=== PATIENT | female | born 1970 | race Caucasian/White ===

== ENCOUNTER → 2017-01-31 | Outpatient (REF) | payer OTHER ==
[2017-01-31 20:23] LABS: FREE T4 0.95 NG/DL (0.76-1.46); LUTEINIZING HORMONE 30.6 mIU/mL
[2017-01-31 20:24] LABS: ESTRADIOL 53.8 PG/ML; FOLLICLE STIMULATING HORMONE 51.3 mIU/mL
[2017-02-04 00:06] LABS: ESTRONE SERUM 129 pg/mL (.)
== END ==
LOC: M LAB REF 16:49
PROVIDERS: ATTEND Obstetrics & Gynecology
DX: N95.9 Unspecified menopausal and perimenopausal disorder (principal)

== ENCOUNTER → 2017-08-08 | Outpatient (CLI) | payer OTHER ==
[2017-08-08 20:00] LABS: LIPASE 149 U/L (73-393)
[2017-08-08 20:00] LABS: AMYLASE 73 U/L (25-115)
[2017-08-10 10:14] LABS: H PYLORI SERUM QUANT IgG ABY 0.42 (0.00-0.79)
== END ==
LOC: M SMT 15:35
DX: R10.13 Epigastric pain (principal)
CPT/HCPCS: 82150

== ENCOUNTER → 2017-10-05 | Outpatient (REF) | payer OTHER | LOC: M SFHCWAGY 10:08 | DX: Z12.4 Encounter for screening for malignant neoplasm of cervix (principal) ==

== ENCOUNTER → 2017-10-05 | Outpatient (CLI) | payer OTHER | LOC: M WHC 09:38 | DX: Z12.31 Encounter for screening mammogram for malignant neoplasm of breast (principal); R92.8 Other abnormal and inconclusive findings on diagnostic imaging of breast; Z78.0 Asymptomatic menopausal state; Z79.890 Hormone replacement therapy | CPT/HCPCS: 77067 ==

== ENCOUNTER → 2018-10-02 | Outpatient (CLI) | payer OTHER ==
[2018-10-02 14:03] LABS: BASO % 0.6 % (0.0-1.0); EOS # 0.2 10^3/uL (0.0-0.50); EOS % 3.9 % (0.0-3.0); HEMATOCRIT 41.8 % (36.0-47.0); HEMOGLOBIN 13.5 g/dl (12.0-15.5); LYMPH # 1.8 10^3/uL (1.5-4.5); LYMPH % 39.4 % (24.0-44.0); MEAN CORPUSCULAR HEMOGLOBIN 30.4 pg (27.0-33.0); MEAN CORPUSCULAR HGB CONC 32.3 g/dl (32.0-36.5); MEAN CORPUSCULAR VOLUME 94.1 fl (80.0-96.0); MONO # 0.4 10^3/uL (0.0-0.8); MONO % 8.8 % (0.0-5.0); NEUTROPHILS # 2.2 10^3/uL (1.8-7.7); NEUTROPHILS % 47.3 % (36.0-66.0); PLATELET COUNT, AUTOMATED 332 10^3/uL (150-450); RED BLOOD COUNT 4.44 10^6/uL (4.00-5.40); WHITE BLOOD COUNT 4.6 10^3/uL (4.0-10.0)
[2018-10-02 14:16] LABS: ALBUMIN 4.5 GM/DL (3.2-5.2); ALT/SGPT 22 U/L (12-78); BILIRUBIN,TOTAL 0.6 MG/DL (0.2-1.0); BLOOD UREA NITROGEN 13 MG/DL (7-18); CALCIUM LEVEL 9.3 MG/DL (8.5-10.1); CARBON DIOXIDE LEVEL 29 MEQ/L (21-32); CHLORIDE LEVEL 106 MEQ/L (98-107); CHOLESTEROL LEVEL 173 MG/DL (<200); CHOLESTEROL RISK RATIO 2.836 (<5); CREATININE FOR GFR 0.69 MG/DL (0.55-1.30); FREE T4 0.87 NG/DL (0.76-1.46); GLOMERULAR FILTRATION RATE > 60.0 (>58); GLUCOSE, FASTING 76 MG/DL (70-100); HDL CHOLESTEROL 61 MG/DL (>40); LDL CHOLESTEROL 103 MG/DL (<100); NON-HDL-C 112 MG/DL; POTASSIUM SERUM 4.1 MEQ/L (3.5-5.1); SODIUM LEVEL 140 MEQ/L (136-145); THYROID STIMULATING HORMONE 0.848 uIU/ML (0.358-3.740); TRIGLYCERIDES LEVEL 46 MG/DL (<150)
== END ==
LOC: M SMT 09:24
PROVIDERS: ATTEND Family Medicine
DX: Z13.220 Encounter for screening for lipoid disorders (principal); Z13.0 Encounter for screening for diseases of the blood and blood-forming organs and certain disorders involving the immune mechanism

== ENCOUNTER → 2018-12-27 | Outpatient (CLI) | payer OTHER ==
--- NOTE | 2018-12-27 11:51 | REP ---
BILATERAL MAMMOGRAM WITH 3D TOMOSYNTHESIS: Family history of breast cancer in a maternal aunt. [facility] lifetime risk of breast cancer 13.5%. Comparison 10/05/2017 as well as multiple other prior studies. MLO and CC views of both breasts are performed with 3D tomosynthesis. Breast parenchyma is heterogeneously dens which limits the sensitivity of the mammogram. On the right MLO view, there is a suggestion of a nodular density superiorly and slightly medially. This measures about 1 cm in diameter. It is best seen on the tomographic images. It is not definitely seen on the corresponding CC projection. I see no other evidence of mass or clustered microcalcifications. IMPRESSION: BIRADS 0: BI-RADS/ACR category 0 mammogram, Incomplete: Need additional imaging evaluation and/or prior mammograms for comparison. Possible nodular density on the right MLO view superiorly and slightly medially. Recommend spot compression view of the right breast in the MLO projection as well as the right ML view. Other views and ultrasound may also be necessary. This mammogram was interpreted with the aid of an FDA-approved computer-aided detection system. The patient states he/she had a clinical breast exam in 12/2018. The patient letter being requested is M0.
== END ==
LOC: M WHC 08:33
PROVIDERS: ATTEND Nurse Practitioner Family
DX: Z12.31 Encounter for screening mammogram for malignant neoplasm of breast (principal); R92.8 Other abnormal and inconclusive findings on diagnostic imaging of breast; Z80.3 Family history of malignant neoplasm of breast

== ENCOUNTER → 2019-01-03 | Outpatient (CLI) | payer OTHER ==
--- NOTE | 2019-01-03 10:56 | REP ---
DIAGNOSTIC MAMMOGRAM RIGHT BREAST WITH RIGHT BREAST ULTRASOUND: Spot compression views of the right breast performed. Mildly lobulated nodule is confirmed at approximately the 12 -o'clock position of the right breast measuring slightly greater than 1 cm in diameter. No associated microcalcifications are seen. Real-time sonographic evaluation of the upper right breast performed with particular attention made to the 12 -o'clock position region. The lobulated mildly irregular hypoechoic nodule is seen at that location, appearing solid. It measures 1.2 x 0.9 x 1.5 cm. I would recommend ultrasound-guided biopsy. IMPRESSION: BIRADS 4: BI-RADS/ACR category 4 mammogram. Suspicious Abnormality - biopsy should be considered. Lobulated nodule confirmed at 12 -o'clock position right breast, appearing solid by ultrasound. Recommend ultrasound-guided biopsy. Patient letter requested in M4. Electronically Signed by Otf Crawley MD 01/06/2019 07:06 P
== END ==
LOC: M RAD 07:50
PROVIDERS: ATTEND Nurse Practitioner Family
DX: R92.2 Inconclusive mammogram (principal)

== ENCOUNTER → 2020-01-07 | Outpatient (CLI) | payer OTHER ==
--- NOTE | 2020-01-07 12:55 | REPMRS ---
Patient History The patient states she had a clinical breast exam in December 2019. Family history of ovarian cancer under age 50 in sister, breast cancer at age 50 or over in maternal aunt. Took estrogen for 1 year 6 months. Took progesterone for 1 year 6 months. Took unspecified hormones for 1 year 4 months. Digital Woman Screen Mammo: January 07, 2020 - Exam #: [id number] Bilateral CC and MLO view(s) were taken. Technologist: Radha Bustamante, Technologist Prior study comparison: December 27, 2018, bilateral digital woman screen mammo performed at [facility]. October 05, 2017, digital woman screen mammo performed at [facility]. April 05, 2016, left breast digital mammo diagnostic unilateral, performed at [facility]. FINDINGS: The breast tissue is heterogeneously dense. This may lower the sensitivity of mammography. The Volpara volumetric breast density category is: C. There is a needle biopsy marker clip at approximately 12 o'clock position in the right breast. There is a moderate amount of heterogeneously dense fibroglandular tissue which is fairly symmetric. There is no interval development of dominant mass, architectural distortion, or grouped microcalcification typical of malignancy. There has been no change in the appearance of the mammogram from the prior studies. 3-D tomosynthesis shows no additional findings. Assessment: BI-RADS/ACR category 2 mammogram. Benign Findings. Recommendation Routine screening mammogram of both breasts in 1 year (for women over age 40). This patient's Lifetime Breast Cancer RIsk is estimated at 13.2 %. This mammogram was interpreted with the aid of an FDA-approved computer-aided dectection system. Electronically Signed By: Talat Phillips MD 01/07/20 [id number]
== END ==
LOC: M WHC 09:59
PROVIDERS: ATTEND Nurse Practitioner Family
DX: Z12.31 Encounter for screening mammogram for malignant neoplasm of breast (principal); Z80.41 Family history of malignant neoplasm of ovary

== ENCOUNTER → 2020-10-14 | Outpatient (CLI) | payer OTHER ==
[2020-10-14 10:31] LABS: BASO % 0.7 % (0.0-1.0); EOS # 0.3 10^3/uL (0.0-0.5); EOS % 8.3 % (0.0-3.0); HEMATOCRIT 40.4 % (36.0-47.0); HEMOGLOBIN 13.1 g/dl (12.0-15.5); LYMPH # 1.7 10^3/uL (1.5-5.0); LYMPH % 41.5 % (24.0-44.0); MEAN CORPUSCULAR HEMOGLOBIN 29.7 pg (27.0-33.0); MEAN CORPUSCULAR HGB CONC 32.4 g/dl (32.0-36.5); MEAN CORPUSCULAR VOLUME 91.6 fl (80.0-96.0); MONO # 0.3 10^3/uL (0.0-0.8); MONO % 6.8 % (2.0-8.0); NEUTROPHILS # 1.8 10^3/uL (1.5-8.5); NEUTROPHILS % 42.7 % (36.0-66.0); PLATELET COUNT, AUTOMATED 298 10^3/uL (150-450); RED BLOOD COUNT 4.41 10^6/uL (4.00-5.40); WHITE BLOOD COUNT 4.1 10^3/uL (4.0-10.0)
[2020-10-14 10:51] LABS: ERYTHROCYTE SEDIMENTATION RATE 4 mm/hr (0-30)
[2020-10-14 11:04] LABS: ALBUMIN 3.8 GM/DL (3.2-5.2); ALT/SGPT 23 U/L (12-78); BILIRUBIN,TOTAL 0.6 MG/DL (0.2-1.0); BLOOD UREA NITROGEN 12 MG/DL (7-18); CALCIUM LEVEL 9.1 MG/DL (8.5-10.1); CARBON DIOXIDE LEVEL 31 MEQ/L (21-32); CHLORIDE LEVEL 107 MEQ/L (98-107); CHOLESTEROL LEVEL 192 MG/DL (<200); CHOLESTEROL RISK RATIO 2.666 (<5); CREATININE FOR GFR 0.63 MG/DL (0.55-1.30); FREE T4 0.78 NG/DL (0.76-1.46); GLOMERULAR FILTRATION RATE > 60.0 (>51); GLUCOSE, FASTING 86 MG/DL (70-100); HDL CHOLESTEROL 72 MG/DL (>40); LDL CHOLESTEROL 108 MG/DL (<100); NON-HDL-C 120 MG/DL; POTASSIUM SERUM 4.3 MEQ/L (3.5-5.1); RHEUMATOID FACTOR QUANT < 10.0 IU/ML (<15.0); SODIUM LEVEL 141 MEQ/L (136-145); TOTAL PROTEIN 6.6 GM/DL (6.4-8.2); TRIGLYCERIDES LEVEL 59 MG/DL (<150)
--- NOTE | 2020-10-14 11:56 | REPPI ---
INDICATION: SWELLING,BILATERAL, MASS AND LUMP. COMPARISON: None. TECHNIQUE: Eight views, bilateral hand series, 4 on each side. FINDINGS: Four views of the right hand demonstrate overall normal mineralization. Joint spaces are preserved. No evidence of erosive change. No soft tissue calcifications seen.. No fracture or subluxation is seen. No opaque foreign body noted. Four views of the left hand demonstrate overall normal mineralization. There is a small cyst in the proximal for and of the 4th metacarpal noted incidentally. Joint spaces are preserved. No erosive changes are seen. There is a small accessory ossicle at the 1st carpometacarpal articulation. IMPRESSION: No acute erosive change. Normal mineralization. Unremarkable soft tissues.. <Electronically signed by Talat Phillips > 10/14/20 [id number]
== END ==
LOC: M PLAIMG 09:06
PROVIDERS: ATTEND Family Medicine
DX: R22.33 Localized swelling, mass and lump, upper limb, bilateral (principal); Z13.220 Encounter for screening for lipoid disorders; Z13.29 Encounter for screening for other suspected endocrine disorder; Z13.0 Encounter for screening for diseases of the blood and blood-forming organs and certain disorders involving the immune mechanism

== ENCOUNTER → 2021-04-03 | Outpatient (CLI) | payer OTHER ==
[~2021-04-03] MED LIST: FLUO20CA22 PO
== END ==
LOC: M LABSMTC 09:36
PROVIDERS: ATTEND Anesthesiology
DX: Z01.818 Encounter for other preprocedural examination (principal); Z11.52 Encounter for screening for COVID-19

== ENCOUNTER 2021-04-08 09:41 | Day surgery (SDC) | payer OTHER ==
[~2021-04-08] VITALS: Ht 168.9 cm; Wt 61.7 kg
[~2021-04-08 09:41] MED LIST changes: +NS 1,000 ML IV ONE
--- OUTSIDE RECORDS SUMMARY | 2021-04-08 09:46 | CCD ---
Author Author Joaquín Wiseman MD [facility] Organization Joaquín Wiseman MD [facility] Address [address] [address] Phone Care Team Providers Care Crime Data Specialist Name Role Phone Norman Loving DO Unavailable [phone] Reason for Referral No Reason for Referral Recorded Problems Includes: Active, inactive, and resolved Problems All Visits Onset Date - Time Resolved Date - Time Provider Co ndition Status Superficial Injury - Abrasion of Cornea 01/08/2021 - 12:00AM Norman Loving DO Active Dry Eye Syndrome 01/08/2021 - 12:00AM Norman Sharona garcia DO Active Plan of Treatment No Plan of Treatment Recorded Assessments Includes: Assessments for all patient encounters Findings Encounter Date Corneal abrasion TRIAGE NEW PATIENT with Norman garcia DO 01/08/2021 Dry eye syndrome TRIAGE NEW PATIENT with Norman garcia 01/08/2021 Instructions Instructions not supported for this document typeNo Instructions Recorded Medical Equipment - Implanted Devices Includes: Current and historical DevicesNo Medical Equipment Recorded Medications Includes: Current and historical Medications Current Medications (continue as prescribed) FLUoxetine HCl 20 MG Oral Capsule 01/08/2021 Provid er: Diagnosis: Ofloxacin 0.3% Ophthalmic Solution 01/08/2021 Provi faye: Norman Loving DO Diagnosis: Inj conjunctiva and corneal abrasion w/o fb, left eye, init one drop four times a day in the left eye Medications Administered Includes: Administered Medications in patient's chartNo Administered Medications Recorded Vital Signs Includes: Vital Signs from 01/09/2020 through 01/08/2021No Vital Signs Recorded For Specified Dates Results Includes: Results from 01/09/2020 through 01/08/2021No Results Recorded For Specified Dates History of Present Illness History of Present Illness not supported for this document typeNo History of Present Illness Recorded Social History Description Last Updated Alcohol use 2 drinks every 2 weeks 01/08/2021 No tobacco use 01/08/2021 Not using drugs 01/08/2021 Smoking status : Never smoker 01/08/2021 Tobacco non-user 01/08/2021 Procedures and Surgical History Surgical History Last Updated Surgical / procedural history , Ovary Remova l 01/08/2021 Medical History Includes: Medical History in patient's chart Description Last Updated Reported medical history Anxiety 01/08/2021 Family History Includes: Family History in patient's chart Description Last Updated Family history of hypertension 01/08/2021 Family history of stroke/cerebrovascular accident 12/18 Paternal history of family history of cancer Sororal history of family history of cancer 01/08/2021 Review of Systems Review of Systems not supported for this document typeNo Review of Systems Recorded Mental Status Mental Status not supported for this document type Description Oriented to time, place, and person Anxiety Functional Status Functional Status not supported for this document typeNo Functional Status Recorded Physical Exam Physical Exam not supported for this document typeNo Physical Exam Recorded Immunizations Includes: Immunizations in patient's chartNo Immunizations Recorded Allergies Includes: Active, inactive, and resolved AllergiesNo Known Allergies Encounters Includes: Encounters from 01/09/2020 through 01/08/2021 Encounter Provider Location Date Check-In Time Check-Out Time D iagnosis TRIAGE NEW PATIENT Norman Fabienne Garcia MD [facility] 1:22PM 2:52PM Dry Eye Syndrome, Superficia l Injury - Abrasion of Cornea Insurance Includes: Active Insurance Policies Plan Name Member ID Group # Subscriber Relationship Effective Da odell 1 - [employer] /[employer] NEEDED [id number] Carlos Webster Self Advance Directives Includes: Current Advance DirectivesNo Advance Directives Recorded Health Concerns Includes: Active Health ConcernsNo Active Health Concerns Recorded Goals Includes: Active GoalsNo Active Goals Recorded Interventions Includes: Interventions for active GoalsNo Interventions Recorded Evaluations & Outcomes Includes: Evaluations & Outcomes for active GoalsNo Outcomes Recorded
--- OUTSIDE RECORDS SUMMARY | 2021-04-08 09:46 | CCD ---
Author Author [facility] Organization [facility] Address Unknown Phone Unavailable Care Team Providers Care Nascar Racer Name Role Phone Velez, L Edith RPA Unavailable Unavailable Velez, L Edith RPA Unavailable Unavailable Velez, L Edith RPA Unavailable Unavailable Velez, L Edith RPA Unavailable Unavailable Velez, L Edith RPA Unavailable Unavailable Velez, L Edith RPA Unavailable Unavailable Velez, L Edith RPA Unavailable Unavailable Velez, L Edith RPA Unavailable Unavailable Velez, L Edith RPA Unavailable Unavailable Velez, L Edith RPA Unavailable Unavailable Velez, L Edith RPA Unavailable Unavailable Velez, L Edith RPA Unavailable Unavailable Velez, L Edith RPA Unavailable Unavailable Velez, L Edith RPA Unavailable Unavailable Velez, L Edith RPA Unavailable Unavailable Velez, L Edith RPA Unavailable Unavailable Velez, L Edith RPA Unavailable Unavailable Velez, L Edith RPA Unavailable Unavailable Velez, L Edith RPA Unavailable Unavailable Velez, L Edith RPA Unavailable Unavailable Velez, L Edith RPA Unavailable Unavailable Velez, L Edith RPA Unavailable Unavailable Velez, L Edith RPA Unavailable Unavailable Velez, L Edith RPA Unavailable Unavailable Velez, L Edith RPA Unavailable Unavailable Velez, L Edith RPA Unavailable Unavailable Velez, L Edith RPA Unavailable Unavailable Velez, L Edith RPA Unavailable Unavailable Velez, L Edith RPA Unavailable Unavailable Velez, L Edith RPA Unavailable Unavailable Velez, L Edith RPA Unavailable Unavailable Velez, L Edith RPA Unavailable Unavailable CUCA, A SOL DO Unavailable Unavailable CUCA, A SOL DO Unavailable Unavailable CUCA, A SOL DO Unavailable Unavailable CUCA, A SOL DO Unavailable Unavailable CUCA, A SOL DO Unavailable Unavailable CUCA, A SOL DO Unavailable Unavailable CUCA, A SOL DO Unavailable Unavailable CUCA, A SOL DO Unavailable Unavailable CUCA, A SOL DO Unavailable Unavailable CUCA, A SOL DO Unavailable Unavailable CUCA, A SOL DO Unavailable Unavailable CUCA, A SOL DO Unavailable Unavailable CUCA, A SOL DO Unavailable Unavailable CUCA, A SOL DO Unavailable Unavailable CUCA, A SOL DO Unavailable Unavailable CUCA, A SOL DO Unavailable Unavailable CUCA, A SOL DO Unavailable Unavailable CUCA, A SOL DO Unavailable Unavailable CUCA, A SOL DO Unavailable Unavailable CUCA, A SOL DO Unavailable Unavailable CUCA, A SOL DO Unavailable Unavailable CUCA, A SOL DO Unavailable Unavailable Re-disclosure Warning The records that you are about to access may contain information from federally-assisted alcohol or drug abuse programs. If such information is present, then the following federally mandated warning applies: This information has been disclosed to you from records protected by federal confidentiality rules (42 CFR part 2). The federal rules prohibit you from making any further disclosure of this information unless further disclosure is expressly permitted by the written consent of the person to whom it pertains or as otherwise permitted by 42 CFR part 2. A general authorization for the release of medical or other information is NOT sufficient for this purpose. The Federal rules restrict any use of the information to criminally investigate or prosecute any alcohol or drug abuse patient.The records that you are about to access may contain highly sensitive health information, the redisclosure of which is protected by Article 27-F of the [facility] Public Health law. If you continue you may have access to information: Regarding HIV / AIDS; Provided by facilities licensed or operated by the [facility] Office of Mental Health; or Provided by the [facility] Office for People With Developmental Disabilities. If such information is present, then the following [facility] mandated warning applies: This information has been disclosed to you from confidential records which are protected by state law. State law prohibits you from making any further disclosure of this information without the specific written consent of the person to whom it pertains, or as otherwise permitted by law. Any unauthorized further disclosure in violation of state law may result in a fine or [place] health [facility] sentence or both. A general authorization for the release of medical or other information is NOT sufficient authorization for further disc losure. Allergies and Adverse Reactions Type Description Substance Reaction Status Data Source(s ) Allergy to substance No Known Allergies No known allergies (situation ) AIDA (Joaquín Marsh MD [facility]) Allergy to substance No Known Allergies No known allergies (situation ) AIDA (Joaquín Marsh MD [facility]) Family History Family Member Name Family Member Gender Family Member Status Date o f Status Description Data Source(s) Unknown Male Problem MEDENT ([facility]) Encounters Encounter Providers Location Date Indications Data Source(s ) Outpatient Attender: Edith Carpenter/Kong/Enedelia mcarthur 01/20/2021 01:15:00 PM EDT [facility] ([facility], ) Outpatient<td ID="encounterTypeDescripti onID0">1 Week Follow-Up</td><td>Sol Loving DO</td><td>Joaquín Wiseman MD [facility]</td><td>01/18/2021</td><td>9:23AM</td><td>10:01AM</td><td><content ID="encounterDiagnosisID0-0">Dry Eye Syndrome</content>, <content ID="encounterDiagnosisID0-1">Blepharitis Squamous</content></td> Attender: SOL Garcia MD [facility] 01/18/2021 09:23:00 AM EDT - 01/18/2021 10:01:00 AM EDT Blepharitis SquamousDry Eye Syndrome AIDA (Joaquín Marsh MD [facility]) Blepharitis Squamous Dry Eye Syndrome <td ID="encounterTypeDescriptionID1">TRI AGE NEW PATIENT</td><td>Sol Loving DO</td><td>Joaquín Wiseman MD [facility]</td><td>01/08/2021</td><td>1:22PM</td><td>2:52PM</td><td><content ID="encounterDiagnosisID1-0">Dry Eye Syndrome</content>, <content ID="encounterDiagnosisID1-1">Superficial Injury - Abrasion of Cornea</content></td>Outpatient Attender: SOL Garcia MD [facility] 01/08/2021 01:22:00 PM EDT - 01/08/2021 02:52:00 PM ED T Superficial Injury - Abrasion of CorneaDry Eye SyndromeSuperficial Injury - Abrasion of CorneaDry Eye Syndrome [place] (Joaquín Marsh MD [facility]) Superficial Injury - Abrasion of Cornea Dry Eye Syndrome Superficial Injury - Abrasion of Cornea Dry Eye Syndrome Outpatient [address] [facility] [address] 08/19/2020 12:00:00 AM EST eCW1 ([facility]) Unknown [address] [facility] [address] 06/29/2020 12:00:00 AM EST eCW1 ([facility]) Unknown [address] [facility] [address] 03/25/2020 12:00:00 AM EDT eCW1 ([facility]) Immunizations Vaccine Date Status Description Data Source(s) COVID-19 VACCINE Moderna 07/16/2020 12:00:00 AM EST completed [facility]SIIS Vaccine Series Complete: NOThis Data was Submitted to [facility] Via [employer]. Medications Medication Brand Name Start Date Product Form Dose Route Admi nistrative Instructions Pharmacy Instructions Status Indications Reaction Description Data Source(s) SUPREP BOWEL PREP KIT 17.5-3.13-1.6 gram SODIUM, POTASSIUM,M AG SULFATES 03/30/2021 12:00:00 AM EDT recon soln 354 TAKE PER DOCTOR'S BOWEL PREP INSTRUCTIONS TAKE PER DOCTOR'S BOWEL PREP INSTRUCTIONS SOLD: 04/01/2021 [facility] 20 mg 03/24/2021 12:00:00 AM EDT capsule 90 TAKE ONE CAPSULE BY MOUTH EVERY DAY TAKE ONE CAPSULE BY MOUTH EVERY DAY SOLD: 04/01/2021 [facility] Ofloxacin 3 MG/ML Ophthalmic Solution Ofloxacin 0.3% O phthalmic Solution Ofloxacin 0.3% Ophthalmic Solution 01/08/2021 12:00:00 AM EDT aborted ofloxacin 3 MG/ML Ophthalmic Solution JOSUE THOMAS (Joaquín Marsh MD [facility]) Fluoxetine 20 MG Oral Capsule FLUoxetine HCl 20 MG Ora l Capsule FLUoxetine HCl 20 MG Oral Capsule 01/08/2021 12:00:00 AM EDT 1 active fluoxetine 20 MG Oral Capsule AIDA (Joaquín Marsh MD [facility]) 0.3 % 01/08/2021 12:00:00 AM EDT drops 5 INSTILL 1 DROP FOUR TIMES A DAY IN THE LEFT EYE INSTILL 1 DROP FOUR TIMES A DAY IN THE LEFT EYE SOLD: 01/08/2021 [facility] 500 mg 09/16/2020 12:00:00 AM EDT tablet 90 TAKE ONE TABLET BY MOUTH EVERY DAY TAKE ONE TABLET BY MOUTH EVERY DAY SOLD: 12/24/2020 [facility] 500 mg 09/16/2020 12:00:00 AM EDT tablet 3 TAKE ONE TABLET BY MOUTH EVERY DAY TAKE ONE TABLET BY MOUTH EVERY DAY SOLD: 04/01/2021 [facility] 500 mg 09/16/2020 12:00:00 AM EDT tablet 90 TAKE ONE TABLET BY MOUTH EVERY DAY TAKE ONE TABLET BY MOUTH EVERY DAY SOLD: 09/18/2020 [facility] 20 mg 06/29/2020 12:00:00 AM EST capsule 90 TAKE ONE CAPSULE BY MOUTH EVERY DAY IN THE MORNING TAKE ONE CAPSULE BY MOUTH EVERY DAY IN THE MORNING WILLIE [facility] 20 mg 06/29/2020 12:00:00 AM EST capsule 90 TAKE ONE CAPSULE BY MOUTH EVERY DAY IN THE MORNING TAKE ONE CAPSULE BY MOUTH EVERY DAY IN THE MORNING WILLIE [facility] 20 mg 06/29/2020 12:00:00 AM EST capsule 90 TAKE ONE CAPSULE BY MOUTH EVERY DAY IN THE MORNING TAKE ONE CAPSULE BY MOUTH EVERY DAY IN THE MORNING WILLIE [facility] 20 mg 03/26/2020 12:00:00 AM EDT capsule 90 TAKE ONE CAPSULE BY MOUTH EVERY MORNING TAKE ONE CAPSULE BY MOUTH EVERY MORNING SOLD: 03/27/2020 [facility] 0.05 % 03/14/2020 12:00:00 AM EDT dropperette 60 INSTILL 1 DROP IN EACH EYE TWO TIMES A DAY INSTILL 1 DROP IN EACH EYE TWO TIMES A DAY SOLD: 03/16/2020 [facility] 500 mg 03/02/2020 12:00:00 AM EDT tablet 30 TAKE ONE TABLET BY MOUTH EVERY DAY TAKE ONE TABLET BY MOUTH EVERY DAY SOLD: 03/04/2020 [facility] Insurance Providers Payer name Policy type / Coverage type Policy ID Covered constitution party ID Covered constitution party's relationship to sage Policy Sage Plan Information [facility] [id number] SELF PAY ONLY [id number] [facility] [id number] SP [id number] [employer] [place] Other 0 [id number] Self 0 [employer] [place] Other 0 [id number] Self [id number] [facility] [id number] ANSI-Commercial [id number] [facility] [id number] SP [id number] ANSI-Commercial [id number] ANSI-Commercial [id number] [facility] [id number] SP [id number] [facility] Part [facility] [id number] Self [id number] [facility] Commercial [id number] Self [id number] ANSI-Commercial [id number] [employer] [id number] SP [id number] [employer] [id number] SP [id number] [employer] [id number] S elf [id number] [employer] [id number] S elf [id number] [employer] [id number] S elf [id number] Problems, Conditions, and Diagnoses Code Display Name Description Problem Type Effective Dates Data Source(s) H01.02A Blepharitis Squamous Blepharitis Squamous Problem 01/18/2021 12:00:00 AM EDT AIDA (Joaquín Marsh MD [facility]) 375.15 Dry Eye Syndrome Dry Eye Syndrome Problem 01/08/2021 12 :00:00 AM EDT AIDA (Joaquín Marsh MD [facility]) 918.1 Superficial Injury - Abrasion of Cornea Superficial Injury - Abrasion of Cornea Problem 01/08/2021 12:00:00 AM EDT - 01/18/2021 12:00:00 AM EDT AIDA (Joaquín Marsh MD [facility]) 375.15 Dry Eye Syndrome Dry Eye Syndrome Problem 01/08/2021 12 :00:00 AM EDT AIDA (Joaquín Marsh MD [facility]) 918.1 Superficial Injury - Abrasion of Cornea Superficial Injury - Abrasion of Cornea Problem 01/08/2021 12:00:00 AM EDT AIDA (Liborio Marsh MD [facility]) Surgeries/Procedures Procedure Description Date Indications Data Source(s) OFFICE OUTPATIENT NEW 45 MINUTES 01/20/2021 12:00:00 A [facility] ) Surgical / procedural history , Ovary Remova l Surgical / procedural history , Ovary Removal 01/08/2021 12:00:00 AM EDT AIDA (Joaquín Marsh MD [facility]) Results No Information Social History Code Duration Value Status Description Data Source(s ) Smoking 01/18/2021 10:04:48 AM EDT Never smoked tobacco (findi ng) completed Never smoked tobacco (finding) AIDA (Joaquín Marsh MD [facility]) Smoking 01/08/2021 02:52:42 PM EDT Never smoked tobacco (findi ng) completed Never smoked tobacco (finding) AIDA (Joaquín Marsh MD [facility]) Smoking 08/19/2020 12:00:00 AM EST Former Smoker completed Former Smoker eCW1 ([facility]) Vital Signs ID Date Data Source UNK Name Value Range Interpretation Code Description Data Source(s) Body height 66.5 [in_i] 66.5 [in_i] [facility] ([facility]) 5'6.50" Body mass index (BMI) [Ratio] 22.6 kg/m2 22.6 k g/m2 [facility] ([facility]) Systolic blood pressure 130 mm[Hg] 130 mm[Hg] M [facility] ([facility]) Body temperature 99.7 [degF] 99.7 [degF] [facility] ([facility]) Body weight 142.25 [lb_av] 142.25 [lb_av] [facility] ([facility]) [place] body weight 130 [lb_av] 130 [lb_av] [facility] ([facility]) Body surface area Derived from formula 1.74 m2 1.74 m2 [facility] ([facility]) Diastolic blood pressure 72 mm[Hg] 72 mm[Hg] [facility] ([facility]) Body weight 64.525 kg 64.525 kg [facility] ([facility]) Body weight 142 [lb_av] 142 [lb_av] eCW1 ([facility]) Diastolic blood pressure 58 mm[Hg] 58 mm[Hg] eCW1 ([facility]) Body weight 64.41 kg 64.41 kg W1 ([facility]) Body height 67 [in_i] 67 [in_i] eCW1 ([facility]) Body mass index (BMI) [Ratio] 22.24 kg/m2 22.24 kg/m2 [facility] ([facility]) Systolic blood pressure 90 mm[Hg] 90 mm[Hg] e CW1 ([facility]) Patient Treatment Plan of Care Planned Activity Planned Date Details Description Data Source (s) Ofloxacin 3 MG/ML Ophthalmic Solution 01/08/2021 12:00:00 AM [facility] (Joaquín Marsh MD [facility])
--- OUTSIDE RECORDS SUMMARY | 2021-04-08 09:46 | CCD ---
Continuity of Care Document (CCD) Created on: 01/20/2021 Laurie Webster External Reference #: [id number] : [id number] Sex: Female Author Author Laurie HOOPER Organization Unknown Address [address] [place] [address], [address] [place] [address] Phone [phone] Care Team Providers Care Program Clinician Name Role Phone Peri De Souza D.O.M Problems Description No Information Available Social History Type Date Description Comments Sex Unknown ETOH Use 1 A Month Tobacco Use Start: 06/19/93 End: 06/19/98 Patient is a forme r smoker Occasionally Recreational Drug Use Denies Drug Use Allergies, Adverse Reactions, Alerts Description No Known Drug Allergies Medications Active Medications SIG Qnty Indications Ordering Provide r Date Fluoxetine HCL 20mg Capsules 1 tab by mouth every day 90caps Unknown Probiotic Digestive Support Extra Streng th Capsules 1 by mouth every day Unknown 0 000 Immunizations Description No Information Available Vital Signs Date Vital Result Comment 01/20/2021 1:25pm BP Systolic 130 mmHg BP Diastolic 72 mmHg Body Temperature 99.7 F Height 66.5 inches 5'6.50" Weight 142.25 lb BMI (Body Mass Index) 22.6 kg/m2 [place] Body Weight 130 lb Weight 64.525 kg BSA (Body Surface Area) 1.74 m2 Results Description No Information Available Procedures Description No Information Available Medical Devices Description No Information Available Encounters Description No Information Available Assessments Date Code Description Provider 01/20/2021 K21.9 Gastro-esophageal reflux disease without esophagitis YADI Wiggins 01/20/2021 Z87.11 Personal history of peptic ulcer disease YADI Wiggins 01/20/2021 Z12.11 Encounter for screening for ynes gnant neoplasm of colon YADI Wiggins 01/20/2021 R10.13 Epigastric pain YADI Wiggins Plan of Treatment No Information Available Functional Status Description No Information Available Mental Status Description No Information Available Referrals Refer to Reason for Referral Status Appt Date Kota Shaw M.D. COLONOSCOPY Scheduled 01/20/2021 [facility] [address] [place] [phone]
--- OUTSIDE RECORDS SUMMARY | 2021-04-08 09:46 | CCD | Continuity of Care Document ---
Author Author Laurie HOOPER Organization Unknown Address [address] [place] [address], [address] [place] [address] Phone [phone] Care Team Providers Care Inspector Set Up And Lay Out Name Role Phone Peri De Souza D.O.M [phone] Problems Description No Information Available Social History [...] lb BMI (Body Mass Index) 22.6 kg/m2 [place] Body Weight 130 lb Weight 64.525 kg [...] Date Kota Shaw M.D. COLONOSCOPY Scheduled 01/20/2021 [facility] [address] [place] [phone]
--- OUTSIDE RECORDS SUMMARY | 2021-04-08 09:46 | CCD ---
Author Author Joaquín Wiseman MD [facility] Organization Joaquín Wiseman MD [facility] Address [address] [address] Phone Care Team Providers Care Hoisting Engine Operator Name Role Phone Fabienne SEYMOURNorman Unavailable [phone] Reason for Referral No Reason for Referral Recorded Problems Includes: Active, inactive, and resolved Problems All Visits Onset Date - Time Resolved Date - Time Provider Co ndition Status Blepharitis Squamous 01/18/2021 - 12:00AM Norman yang DO Active Superficial Injury - Abrasion of Cornea 01/08/2021 - 12:00AM 01/18/2021 - 10:04AM Norman Loving DO Resolved Dry Eye Syndrome 01/08/2021 - 12:00AM Norman garcia DO Active Plan of Treatment No Plan of Treatment Recorded Assessments Includes: Assessments for all patient encounters Findings Encounter Date Dry eye syndrome 1 Week Follow-Up with Norman Loving DO 01/18/2021 Squamous blepharitis right eye, upper an d lower eyelids and left eye, upper and lower eyelids 1 Week Follow-Up with Norman Loving DO 01/18/2021 Corneal abrasion TRIAGE NEW PATIENT with Norman Sharona garcia DO 01/08/2021 Dry eye syndrome TRIAGE NEW PATIENT with Norman Sharona n 01/08/2021 Instructions Instructions not supported for this document typeNo Instructions Recorded Medical Equipment - Implanted Devices Includes: Current and historical DevicesNo Medical Equipment Recorded Medications Includes: Current and historical Medications Current Medications (continue as prescribed) FLUoxetine HCl 20 MG Oral Capsule 01/08/2021 Provid er: Diagnosis: Past Medications on file Ofloxacin 0.3% Ophthalmic Solution 01/08/2021 - 01/18/2021 P rovider: Norman Loving DO Diagnosis: Inj conjunctiva and corneal abrasion w/o fb, left eye, init one drop four times a day in the left eye Medications Administered Includes: Administered Medications in patient's chartNo Administered Medications Recorded Vital Signs Includes: Vital Signs from 01/19/2020 through 01/18/2021No Vital Signs Recorded For Specified Dates Results Includes: Results from 01/19/2020 through 01/18/2021No Results Recorded For Specified Dates History of Present Illness History of Present Illness not supported for this document typeNo History of Present Illness Recorded Social History Description Last Updated No tobacco use 01/18/2021 Not using drugs 01/18/2021 Smoking status : Never smoker 01/18/2021 Alcohol use 2 drinks every 2 weeks 01/08/2021 Tobacco non-user 01/08/2021 Procedures and Surgical History Surgical History Last Updated Surgical / procedural history , Ovary Remova l 01/08/2021 Medical History Includes: Medical History in patient's chart Description Last Updated No recent change in medical history 01/18/2021 Reported medical history Anxiety 01/08/2021 Family History Includes: Family History in patient's chart Description Last Updated Family history of hypertension 01/18/2021 Family history of stroke/cerebrovascular accident 07/2020 Paternal history of family history of cancer Sororal history of family history of cancer 01/18/2021 Review of Systems Review of Systems not [...] AllergiesNo Known Allergies Encounters Includes: Encounters from 01/19/2020 through 01/18/2021 Encounter Provider Location Date Check-In Time Check-Out Time D iagnosis 1 Week Follow-Up Norman Garcia MD [facility] 07/2020 9:23AM 10:01AM Dry Eye Syndrome, Blephariti s Squamous TRIAGE NEW PATIENT Norman Garcia MD [facility] 1:22PM 2:52PM Dry Eye Syndrome, Superficia l Injury - Abrasion of Cornea Insurance Includes: Active Insurance Policies Plan Name Member ID Group # Subscriber Relationship Effective Da odell 1 - [employer] /PRIOR [employer] NEEDED [id number] Carlso Webster Self Advance Directives Includes: Current Advance DirectivesNo Advance Directives Recorded Health Concerns Includes: Active Health ConcernsNo Active Health Concerns Recorded Goals Includes: Active GoalsNo Active Goals Recorded Interventions Includes: Interventions for active GoalsNo Interventions Recorded Evaluations & Outcomes Includes: Evaluations & Outcomes for active GoalsNo Outcomes Recorded
--- OUTSIDE RECORDS SUMMARY | 2021-04-08 09:46 | CCD | Continuity of Care Document ---
Author Author Laurie HOOPER Organization Unknown Address [address] [place] [address], [address] [place] [address] Phone [phone] Care Team Providers Care Avionics Repair Technician Name Role Phone Peri De Souza D.O.M [phone] Problems Description No Information Available Social [...] lb BMI (Body Mass Index) 22.6 kg/m2 [place] Body Weight 130 lb Weight 64.525 kg BSA (Body Surface Area) 1.74 m2 Results Description No Information Available Procedures Date Code Description Status 01/20/2021 [address]605 Office/Outpatient New Moderate M DM 45-59 Minutes Completed Medical Devices Description No Information Available Encounters Type Date Location Provider Dx Diagnosis Office Visit 01/20/2021 1:15p [facility] YADI Swann K21.9 Gastro-esophageal reflux disease without esophagitis Z87.11 Personal history of peptic u lcer disease Z12.11 Encounter for screening for malignant neoplasm of colon R10.13 Epigastric pain Assessments Date Code Description Provider 01/20/2021 K21.9 Gastro-esophageal reflux disease without esophagitis YADI Wiggins 01/20/2021 Z87.11 Personal history of peptic ulcer disease YADI Wiggins 01/20/2021 Z12.11 Encounter for screening for ynes gnant neoplasm of colon YADI Wiggins 01/20/2021 R10.13 Epigastric pain YADI Wiggins Plan of Treatment Future Appointment(s):* 04/21/2021 10:15 am - YADI Wiggins at [facility] * 04/08/2021 11:15 am - Kota Shaw M.D. at [facility] 01/20/2021 - YADI Wiggins* K21.9 Gastro-esophageal reflux disease without esophagitis * Z87.11 Personal history of peptic ulcer disease * Z12.11 Encounter for screening for malignant neoplasm of colon * R10.13 Epigastric pain Functional Status Description No Information Available Mental Status Description No Information Available Referrals Refer to Dr Reason for Referral Status Appt Date Kota Shaw M.D. COLONOSCOPY Scheduled 01/20/2021 [facility] [address] [place] [phone]
--- OUTSIDE RECORDS SUMMARY | 2021-04-08 09:46 | CCD | Continuity of Care Document ---
Author Author Laurie HOOPER Organization Unknown Address [address] [place] [address], [address] [place] [address] Phone [phone] Care Team Providers Care Seam Finisher Name Role Phone Peri De Souza D.O.M [...] lb BMI (Body Mass Index) 22.6 kg/m2 [place] Body Weight 130 lb Weight 64.525 kg [...] Date Kota Shaw M.D. COLONOSCOPY Scheduled 01/20/2021 [facility] [address] [place] [phone]
[2021-04-08] MEDS ORDERED: fentaNYL 100 MCG/2 ML INJECTION (J3010) As Ordered ONE (10:21)
[2021-04-08] MEDS ORDERED: propofoL 200 MG/20 ML VIAL As Ordered ONE (10:22)
[2021-04-08] MEDS ORDERED: LIDOCAINE 2% 100MG/5ML SDV (FOR ANES.) As Ordered ONE (10:22)
[2021-04-08] MEDS ORDERED: ePHEDrine SULFATE 25 MG/5 ML(5MG/ML) SYRINGE As Ordered ONE (11:12)
--- NOTE | 2021-04-08 11:50 | ROOR ---
Patient Name: Laurie Webster Procedure Date: 04/08/2021 10:56 AM Date of : 1970 Age: 51 Room: [facility] Gender: Female Note Status: Finalized Procedure: Upper GI endoscopy Indications: Follow-up of esophageal reflux Providers: Kota Shaw MD Referring MD: Peri MCCARTHY DO Requesting Provider: Medicines: Monitored Anesthesia Care Complications: No immediate complications. Procedure: Pre-Anesthesia Assessment: - Prior to the procedure, a History and Physical was performed, and patient medications and allergies were reviewed. The patient is competent. The risks and benefits of the procedure and the sedation options and risks were discussed with the patient. All questions were answered and informed consent was obtained. Patient identification and proposed procedure were verified by the physician, the nurse and the forensic medical examiner in the procedure room. Mental Status Examination: alert and oriented. Airway Examination: normal oropharyngeal airway and neck mobility. Prophylactic Antibiotics: The patient does not require prophylactic antibiotics. Prior Anticoagulants: The patient has taken no previous anticoagulant or antiplatelet agents. ASA Grade Assessment: II - A patient with mild systemic disease. After reviewing the risks and benefits, the patient was deemed in satisfactory condition to undergo the procedure. The anesthesia plan was to use monitored anesthesia care (MAC). Immediately prior to administration of medications, the patient was re-assessed for adequacy to receive sedatives. The heart rate, respiratory rate, oxygen saturations, blood pressure, adequacy of pulmonary ventilation, and response to care were monitored throughout the procedure. The physical status of the patient was re-assessed after the procedure. The Endoscope was introduced through the mouth, and advanced to the second part of duodenum. The upper GI endoscopy was accomplished without difficulty. The patient tolerated the procedure well. Findings: The examined esophagus was normal. A few localized, diminutive non-bleeding erosions were found in the prepyloric region of the stomach. There were no stigmata of recent bleeding. The exam of the stomach was otherwise normal. The first portion of the duodenum and second portion of the duodenum were normal. Impression: - Normal esophagus. - Non-bleeding erosive gastropathy. - Normal first portion of the duodenum and second portion of the duodenum. - No specimens collected. Recommendation: - Discharge patient to home. - Resume previous diet. - Continue present medications. Procedure Code(s): --- Professional --- 32160, Esophagogastroduodenoscopy, flexible, transoral; diagnostic, including collection of specimen(s) by brushing or washing, when performed (separate procedure) Diagnosis Code(s): --- Professional --- K31.89, Other diseases of stomach and duodenum K21.9, Gastro-esophageal reflux disease without esophagitis CPT copyright 2019 [employer]. All rights reserved. The codes documented in this report are preliminary and upon baggage inspector review may be revised to meet current compliance requirements. Kota Shaw MD Kota Shaw MD 04/08/2021 11:50:19 AM Electronically signed by Kota Shaw MD Number of Addenda: 0 Note Initiated On: 04/08/2021 10:56 AM Estimated Blood Loss: Estimated blood loss: none.
--- NOTE | 2021-04-08 11:53 | ROOR ---
Patient Name: Laurie Webster Procedure Date: 04/08/2021 10:56 AM Date of : 1970 Age: 51 Room: [facility] Gender: Female Note Status: Finalized Procedure: Colonoscopy Indications: Screening for colorectal malignant neoplasm, Last colonoscopy: 2012 Providers: Kota Shaw MD Referring MD: Peri MCCARTHY DO Requesting Provider: Peri MCCARTHY DO Medicines: Monitored Anesthesia Care Complications: No immediate complications. Procedure: Pre-Anesthesia Assessment: - Prior to the procedure, a History and Physical was performed, and patient medications and allergies were reviewed. The patient is competent. The risks and benefits of the procedure and the sedation options and risks were discussed with the patient. All questions were answered and informed consent was obtained. Patient identification and proposed procedure were verified by the physician, the nurse and the senior drafter in the procedure room. Mental Status Examination: alert and oriented. Airway Examination: normal oropharyngeal airway and neck mobility. Prophylactic Antibiotics: The patient does not require prophylactic antibiotics. Prior Anticoagulants: The patient has taken no previous anticoagulant or antiplatelet agents. ASA Grade Assessment: II - A patient with mild systemic disease. After reviewing the risks and benefits, the patient was deemed in satisfactory condition to undergo the procedure. The anesthesia plan was to use monitored anesthesia care (MAC). Immediately prior to administration of medications, the patient was re-assessed for adequacy to receive sedatives. The heart rate, respiratory rate, oxygen saturations, blood pressure, adequacy of pulmonary ventilation, and response to care were monitored throughout the procedure. The physical status of the patient was re-assessed after the procedure. The Colonoscope was introduced through the anus and advanced to the cecum, identified by appendiceal orifice and ileocecal valve. The colonoscopy was somewhat difficult due to significant looping. Successful completion of the procedure was aided by using manual pressure. The patient tolerated the procedure well. The quality of the bowel preparation was adequate to identify polyps. Findings: The perianal and digital rectal examinations were normal. The colon (entire examined portion) appeared normal. Impression: - The entire examined colon is normal. - No specimens collected. Recommendation: - Discharge patient to home. - Resume previous diet. - Continue present medications. - Repeat colonoscopy in 10 years for screening purposes. Procedure Code(s): --- Professional --- 36878, Colonoscopy, flexible; diagnostic, including collection of specimen(s) by brushing or washing, when performed (separate procedure) Diagnosis Code(s): --- Professional --- Z12.11, Encounter for screening for malignant neoplasm of colon CPT copyright 2019 [employer]. All rights reserved. The codes documented in this report are preliminary and upon sheet manager review may be revised to meet current compliance requirements. Kota Shaw MD Kota Shaw MD 04/08/2021 11:52:34 AM Electronically signed by Kota Shaw MD Number of Addenda: 0 Note Initiated On: 04/08/2021 10:56 AM Estimated Blood Loss: Estimated blood loss: none.
[2021-04-08 12:05] VITALS: BP 95/58
== END 2021-04-08 12:11 | disposition home or self-care (01) ==
LOC: M OPP 09:41
PROVIDERS: ATTEND Surgery
DX: Z12.11 Encounter for screening for malignant neoplasm of colon (principal); K31.89 Other diseases of stomach and duodenum; K21.9 Gastro-esophageal reflux disease without esophagitis; R10.13 Epigastric pain; Z87.11 Personal history of peptic ulcer disease; Z87.891 Personal history of nicotine dependence
CPT/HCPCS: 43235; 45378; J3010

== ENCOUNTER → 2021-04-28 | Outpatient (REF) | payer OTHER ==
[~2021-04-28] MED LIST changes: -NS 1,000 ML IV ONE
== END ==
LOC: M SFHCWAGY 12:56
PROVIDERS: ATTEND Nurse Practitioner Women's Health
DX: Z01.419 Encounter for gynecological examination (general) (routine) without abnormal findings (principal); Z12.4 Encounter for screening for malignant neoplasm of cervix; Z77.9 Other contact with and (suspected) exposures hazardous to health
CPT/HCPCS: 87624; G0123

== ENCOUNTER → 2021-04-28 | Outpatient (CLI) | payer OTHER ==
--- NOTE | 2021-04-28 10:14 | REPMRS ---
Patient History The patient states she had a clinical breast exam 04-28-2021. Patient is postmenopausal. Family history of ovarian cancer under age 50 in sister, breast cancer at age 50 or over in maternal aunt. Benign core biopsy of the right breast, January 17, 2019. Took estrogen for 1 year 6 months. Took progesterone for 1 year 6 months. Took unspecified hormones for 1 year 4 months. Tomosynthesis is performed. Volpara breast density is c. Tyrer-Cuzick lifetime risk of breast cancer 12.7%. Patient states no breast complaints today. Patient has signed MRS History Sheet. Digital Woman Screen Mammo: April 28, 2021 - Exam #: [id number] Bilateral CC and MLO view(s) were taken. Technologist: Joleen Edmondson Paper Folding Machine Operator Prior study comparison: January 07, 2020, bilateral digital woman screen mammo performed at [facility]. January 03, 2019, right breast digital mammo diagnostic unilateral, performed at [facility]. FINDINGS: The breast tissue is heterogeneously dense. This may lower the sensitivity of mammography. There has been no change in the appearance of the mammogram from the prior studies. There is a moderate amount of residual fibroglandular tissue which is fairly symmetric. There is no interval development of dominant mass, areas of architectural distortion, or clustered microcalcification typical of malignancy. Assessment: BI-RADS/ACR category 1 mammogram. Negative Mammogram. Recommendation Routine screening mammogram in 1 year (for women over age 40). This mammogram was interpreted with the aid of an FDA-approved computer-aided dectection system. Electronically Signed By: Otf Crawley MD 04/28/21 1014
== END ==
LOC: M WHC 07:50
PROVIDERS: ATTEND Nurse Practitioner Women's Health
DX: Z12.31 Encounter for screening mammogram for malignant neoplasm of breast (principal)

== ENCOUNTER → 2021-07-06 | Outpatient (CLI) | payer OTHER ==
[~2021-07-06] MED LIST changes: +GASTROGRAFIN SOLUTION 30ML (Q9963) As Ordered ONE; +ISOVUE-370 76% 100ML VIAL As Ordered ONE
[2021-07-06 11:33] LABS: BASO % 0.8 % (0.0-1.0); EOS # 0.2 10^3/uL (0.0-0.5); EOS % 3.9 % (0.0-3.0); HEMATOCRIT 38.5 % (36.0-47.0); HEMOGLOBIN 12.3 g/dl (12.0-15.5); LYMPH # 1.3 10^3/uL (1.5-5.0); LYMPH % 26.1 % (24.0-44.0); MEAN CORPUSCULAR HEMOGLOBIN 29.7 pg (27.0-33.0); MEAN CORPUSCULAR HGB CONC 31.9 g/dl (32.0-36.5); MONO # 0.4 10^3/uL (0.0-0.8); MONO % 8.2 % (2.0-8.0); NEUTROPHILS # 3.1 10^3/uL (1.5-8.5); NEUTROPHILS % 60.8 % (36.0-66.0); PLATELET COUNT, AUTOMATED 338 10^3/uL (150-450); RED BLOOD COUNT 4.14 10^6/uL (4.00-5.40); WHITE BLOOD COUNT 5.1 10^3/uL (4.0-10.0)
[2021-07-06 13:10] LABS: ALBUMIN 3.8 GM/DL (3.2-5.2); ALT/SGPT 43 U/L (12-78); BILIRUBIN,DIRECT 0.1 MG/DL (0.0-0.2); BILIRUBIN,TOTAL 0.6 MG/DL (0.2-1.0); BLOOD UREA NITROGEN 12 MG/DL (7-18); CALCIUM LEVEL 8.8 MG/DL (8.5-10.1); CARBON DIOXIDE LEVEL 30 MEQ/L (21-32); CHLORIDE LEVEL 106 MEQ/L (98-107); GLOMERULAR FILTRATION RATE > 60.0 (>51); GLUCOSE, FASTING 85 MG/DL (70-100); LIPASE 117 U/L (73-393); POTASSIUM SERUM 4.1 MEQ/L (3.5-5.1); SODIUM LEVEL 139 MEQ/L (136-145); TOTAL PROTEIN 6.7 GM/DL (6.4-8.2)
== END ==
LOC: M RAD 10:46
PROVIDERS: ATTEND Physician Assistant
DX: R93.5 Abnormal findings on diagnostic imaging of other abdominal regions, including retroperitoneum (principal); R10.813 Right lower quadrant abdominal tenderness
CPT/HCPCS: 36415; 74177; 80048; 80076; 83690; 85025; Q9963; Q9967

== ENCOUNTER → 2021-08-26 | Outpatient (CLI) | payer OTHER ==
[~2021-08-26] MED LIST changes: -GASTROGRAFIN SOLUTION 30ML (Q9963) As Ordered ONE; -ISOVUE-370 76% 100ML VIAL As Ordered ONE; +VALA500T5
[2021-08-26 10:31] LABS: BASO % 0.4 % (0.0-1.0); EOS # 0.2 10^3/uL (0.0-0.5); EOS % 1.5 % (0.0-3.0); HEMATOCRIT 38.5 % (36.0-47.0); HEMOGLOBIN 12.3 g/dl (12.0-15.5); LYMPH # 0.8 10^3/uL (1.5-5.0); LYMPH % 8.5 % (24.0-44.0); MEAN CORPUSCULAR HGB CONC 31.9 g/dl (32.0-36.5); MEAN CORPUSCULAR VOLUME 87.7 fl (80.0-96.0); MONO # 0.7 10^3/uL (0.0-0.8); MONO % 7.4 % (2.0-8.0); NEUTROPHILS # 8.1 10^3/uL (1.5-8.5); NEUTROPHILS % 81.8 % (36.0-66.0); PLATELET COUNT, AUTOMATED 727 10^3/uL (150-450); RED BLOOD COUNT 4.39 10^6/uL (4.00-5.40); WHITE BLOOD COUNT 9.9 10^3/uL (4.0-10.0)
[2021-08-26 10:57] LABS: ALBUMIN 2.6 GM/DL (3.2-5.2); ALT/SGPT 21 U/L (12-78); BILIRUBIN,DIRECT 0.1 MG/DL (0.0-0.2); BILIRUBIN,TOTAL 0.4 MG/DL (0.2-1.0); BLOOD UREA NITROGEN 14 MG/DL (7-18); CALCIUM LEVEL 9.3 MG/DL (8.5-10.1); CARBON DIOXIDE LEVEL 30 MEQ/L (21-32); CHLORIDE LEVEL 105 MEQ/L (98-107); CREATININE FOR GFR 0.58 MG/DL (0.55-1.30); GLOMERULAR FILTRATION RATE > 60.0 (>51); GLUCOSE, FASTING 98 MG/DL (70-100); LDH LACTATE DEHYDROGENASE 162 U/L (84-246); POTASSIUM SERUM 4.2 MEQ/L (3.5-5.1); SODIUM LEVEL 140 MEQ/L (136-145); TOTAL PROTEIN 6.3 GM/DL (6.4-8.2)
== END ==
LOC: M LAB 10:01
PROVIDERS: ATTEND Physician Assistant
DX: C56.1 Malignant neoplasm of right ovary (principal)

== ENCOUNTER → 2021-09-21 | Outpatient (CLI) | payer OTHER ==
[2021-09-21 10:20] LABS: BASO # 0.1 10^3/uL (0.0-0.2); BASO % 0.9 % (0.0-1.0); EOS # 0.2 10^3/uL (0.0-0.5); EOS % 1.8 % (0.0-3.0); HEMATOCRIT 29.4 % (36.0-47.0); HEMOGLOBIN 9.1 g/dl (12.0-15.5); LYMPH # 1.3 10^3/uL (1.5-5.0); LYMPH % 15.6 % (24.0-44.0); MEAN CORPUSCULAR HEMOGLOBIN 26.5 pg (27.0-33.0); MEAN CORPUSCULAR VOLUME 85.5 fl (80.0-96.0); MONO # 0.6 10^3/uL (0.0-0.8); MONO % 7.5 % (2.0-8.0); NEUTROPHILS # 5.9 10^3/uL (1.5-8.5); NEUTROPHILS % 72.7 % (36.0-66.0); PLATELET COUNT, AUTOMATED 620 10^3/uL (150-450); RED BLOOD COUNT 3.44 10^6/uL (4.00-5.40); WHITE BLOOD COUNT 8.1 10^3/uL (4.0-10.0)
[2021-09-21 10:56] LABS: BILIRUBIN,TOTAL 0.3 MG/DL (0.2-1.0); BLOOD UREA NITROGEN 9 MG/DL (7-18); CALCIUM LEVEL 8.6 MG/DL (8.5-10.1); CARBON DIOXIDE LEVEL 28 MEQ/L (21-32); CHLORIDE LEVEL 104 MEQ/L (98-107); CREATININE FOR GFR 0.45 MG/DL (0.55-1.30); GLOMERULAR FILTRATION RATE > 60.0 (>51); GLUCOSE, FASTING 106 MG/DL (70-100); MAGNESIUM LEVEL 2.1 MG/DL (1.8-2.4); POTASSIUM SERUM 4.5 MEQ/L (3.5-5.1); SODIUM LEVEL 138 MEQ/L (136-145)
[2021-09-21 11:35] LABS: CA 125 278.6 U/ML (<30.2)
== END ==
LOC: M LAB 09:39
PROVIDERS: ATTEND Obstetrics & Gynecology
DX: R19.00 Intra-abdominal and pelvic swelling, mass and lump, unspecified site (principal); R10.2 Pelvic and perineal pain; R93.89 Abnormal findings on diagnostic imaging of other specified body structures; C56.2 Malignant neoplasm of left ovary

== ENCOUNTER → 2021-10-11 | Outpatient (CLI) | payer OTHER ==
[2021-10-11 16:27] LABS: BASO # 0.1 10^3/uL (0.0-0.2); BASO % 1.4 % (0.0-1.0); EOS # 0.1 10^3/uL (0.0-0.5); EOS % 2.6 % (0.0-3.0); HEMATOCRIT 28.7 % (36.0-47.0); HEMOGLOBIN 8.5 g/dl (12.0-15.5); LYMPH # 1.1 10^3/uL (1.5-5.0); LYMPH % 26.5 % (24.0-44.0); MEAN CORPUSCULAR HEMOGLOBIN 25.7 pg (27.0-33.0); MEAN CORPUSCULAR HGB CONC 29.6 g/dl (32.0-36.5); MEAN CORPUSCULAR VOLUME 86.7 fl (80.0-96.0); MONO # 0.4 10^3/uL (0.0-0.8); MONO % 9.6 % (2.0-8.0); NEUTROPHILS # 2.5 10^3/uL (1.5-8.5); NEUTROPHILS % 59.4 % (36.0-66.0); PLATELET COUNT, AUTOMATED 395 10^3/uL (150-450); RED BLOOD COUNT 3.31 10^6/uL (4.00-5.40); WHITE BLOOD COUNT 4.3 10^3/uL (4.0-10.0)
[2021-10-11 16:55] LABS: BILIRUBIN,TOTAL 0.5 MG/DL (0.2-1.0); BLOOD UREA NITROGEN 9 MG/DL (7-18); CALCIUM LEVEL 8.6 MG/DL (8.5-10.1); CARBON DIOXIDE LEVEL 30 MEQ/L (21-32); CHLORIDE LEVEL 102 MEQ/L (98-107); CREATININE FOR GFR 0.59 MG/DL (0.55-1.30); GLOMERULAR FILTRATION RATE > 60.0 (>51); GLUCOSE, FASTING 102 MG/DL (70-100); MAGNESIUM LEVEL 2.1 MG/DL (1.8-2.4); SODIUM LEVEL 139 MEQ/L (136-145)
[2021-10-11 17:41] LABS: CA 125 333.2 U/ML (<30.2)
== END ==
LOC: M LAB 15:32
PROVIDERS: ATTEND Obstetrics & Gynecology
DX: T36.3X5A Adverse effect of macrolides, initial encounter (principal); C56.2 Malignant neoplasm of left ovary; R10.2 Pelvic and perineal pain; R19.00 Intra-abdominal and pelvic swelling, mass and lump, unspecified site; R93.89 Abnormal findings on diagnostic imaging of other specified body structures

== ENCOUNTER → 2021-11-01 | Outpatient (CLI) | payer OTHER ==
[2021-11-01 10:33] LABS: BASO % 0.6 % (0.0-1.0); EOS # 0.1 10^3/uL (0.0-0.5); HEMATOCRIT 29.8 % (36.0-47.0); HEMOGLOBIN 8.7 g/dl (12.0-15.5); LYMPH # 1.2 10^3/uL (1.5-5.0); LYMPH % 35.2 % (24.0-44.0); MEAN CORPUSCULAR HGB CONC 29.2 g/dl (32.0-36.5); MONO # 0.4 10^3/uL (0.0-0.8); MONO % 11.9 % (2.0-8.0); NEUTROPHILS # 1.8 10^3/uL (1.5-8.5); NEUTROPHILS % 50.3 % (36.0-66.0); PLATELET COUNT, AUTOMATED 501 10^3/uL (150-450); RED BLOOD COUNT 3.35 10^6/uL (4.00-5.40); WHITE BLOOD COUNT 3.5 10^3/uL (4.0-10.0)
[2021-11-01 10:49] LABS: BILIRUBIN,TOTAL 0.2 MG/DL (0.2-1.0); BLOOD UREA NITROGEN 5 MG/DL (7-18); CALCIUM LEVEL 9.3 MG/DL (8.5-10.1); CARBON DIOXIDE LEVEL 27 MEQ/L (21-32); CHLORIDE LEVEL 106 MEQ/L (98-107); CREATININE FOR GFR 0.38 MG/DL (0.55-1.30); GLOMERULAR FILTRATION RATE > 60.0 (>51); GLUCOSE, FASTING 84 MG/DL (70-100); MAGNESIUM LEVEL 2.2 MG/DL (1.8-2.4); POTASSIUM SERUM 4.5 MEQ/L (3.5-5.1); SODIUM LEVEL 141 MEQ/L (136-145)
[2021-11-01 11:30] LABS: CA 125 263.9 U/ML (<30.2)
== END ==
LOC: M LAB 09:28
PROVIDERS: ATTEND Obstetrics & Gynecology
DX: T36.3X5A Adverse effect of macrolides, initial encounter (principal); C56.2 Malignant neoplasm of left ovary; R10.2 Pelvic and perineal pain; R19.00 Intra-abdominal and pelvic swelling, mass and lump, unspecified site; R93.89 Abnormal findings on diagnostic imaging of other specified body structures

== ENCOUNTER → 2022-03-18 | Outpatient (CLI) | payer OTHER | LOC: M CARPUL 07:26 | DX: C56.9 Malignant neoplasm of unspecified ovary (principal) ==

== ENCOUNTER 2022-11-15 16:32 | Emergency (ER) | payer OTHER ==
[~2022-11-15] VITALS: Ht 167.6 cm; Wt 61.3 kg
[2022-11-15] MEDS ORDERED: SODIUM CHLORIDE 0.9% INJ 10 ML SYR IV PRN (18:25)
[2022-11-15 19:16] LABS: HEMATOCRIT 31.8 % (36.0-47.0); HEMOGLOBIN 10.5 g/dl (12.0-15.5); PLATELET COUNT, AUTOMATED 134 10^3/uL (150-450); RED BLOOD COUNT 3.28 10^6/uL (4.00-5.40); WHITE BLOOD COUNT 16.3 10^3/uL (4.0-10.0)
[2022-11-15 19:35] LABS: ALBUMIN 2.6 G/DL (3.2-5.2); ALKALINE PHOSPHATASE 131 U/L (46-116); ALT/SGPT 49 U/L (7.0-40); AST/SGOT 27 U/L (<34); BILIRUBIN,DIRECT 0.2 MG/DL (<0.4); BILIRUBIN,TOTAL 0.5 MG/DL (0.3-1.2); BLOOD UREA NITROGEN 20 MG/DL (9-23); CALCIUM LEVEL 6.4 MG/DL (8.5-10.1); CARBON DIOXIDE LEVEL 21 MMOL/L (20-31); CHLORIDE LEVEL 112 MMOL/L (98-107); CREATININE FOR GFR 0.63 MG/DL (0.55-1.30); GLOMERULAR FILTRATION RATE > 60.0 (>51); GLUCOSE, FASTING 69 MG/DL (60-100); POTASSIUM SERUM 3.7 MMOL/L (3.5-5.1); SODIUM LEVEL 144 MMOL/L (136-145); TOTAL PROTEIN 4.5 G/DL (5.7-8.2)
[2022-11-15 19:39] LABS: THYROID STIMULATING HORMONE 1.396 uIU/ML (0.55-4.78)
[2022-11-15 19:41] LABS: APPEARANCE, URINE CLOUDY (CLEAR); BACTERIA, URINE AUTO NEGATIVE (NEGATIVE); BILIRUBIN, URINE AUTO NEGATIVE (NEGATIVE); BLOOD, URINE BLOOD 2+ (NEGATIVE); COLOR, URINE AMBER (YELLOW); GLUCOSE, URINE (UA) AUTO NEGATIVE (NEGATIVE); KETONE, URINE AUTO TRACE mg/dL (NEGATIVE); LEUKOCYTE ESTERASE, URINE AUTO NEGATIVE (NEGATIVE); MUCUS, URINE SMALL (NEGATIVE); NITRITE, URINE AUTO NEGATIVE (NEGATIVE); PROTEIN, URINE AUTO 3+ mg/dL (NEGATIVE); RBC, URINE AUTO 14 /HPF (0-3); SPECIFIC GRAVITY URINE AUTO 1.016 (1.002-1.035); SQUAMOUS EPITHELIAL CELL UR AU 0 /HPF (0-6); UROBILINOGEN, URINE AUTO 0.2 mg/dL (0.0-2.0); WBC, URINE AUTO 2 /HPF (0-3)
[2022-11-15 19:43] LABS: BASOPHILS 1 % (0-1); EOSINOPHILS 1 % (0-3); LYMPHOCYTES 7 % (16-44); NEUTROPHILS 88 % (28-66)
[2022-11-15 19:44] LABS: PLATELET ESTIMATE DECREASED (NORMAL)
[2022-11-15] MEDS ORDERED: CARVedilol 12.5 MG TAB PO ONE (20:15)
[2022-11-15 20:21] VITALS: BP 193/100
[2022-11-15 21:47] VITALS: BP 150/85
[2022-11-15] MEDS ORDERED: CORE25TA PO (21:59)
[2022-11-15] MEDS ORDERED: LISI10TA22 PO (21:59)
== END 2022-11-15 22:19 | disposition home or self-care (01) ==
LOC: M ED 16:32
DX: I10 Essential (primary) hypertension (principal); T45.1X5A Adverse effect of antineoplastic and immunosuppressive drugs, initial encounter; C56.9 Malignant neoplasm of unspecified ovary; Z79.899 Other long term (current) drug therapy

== ENCOUNTER → 2023-02-14 | Outpatient (CLI) | payer OTHER ==
[~2023-02-14] MED LIST changes: +CORE25TA PO; +LISI10TA22 PO
== END ==
LOC: M PLAIMG 07:02
PROVIDERS: ATTEND Physician Assistant
DX: G44.52 New daily persistent headache (NDPH) (principal)

== ENCOUNTER → 2023-02-15 | Outpatient (CLI) | payer OTHER ==
[2023-02-16 11:45] LABS: CALCIUM LEVEL 8.6 MG/DL (8.5-10.1); CREATININE FOR GFR 1.75 MG/DL (0.55-1.30); GLOMERULAR FILTRATION RATE 32.4 (>51)
== END ==
LOC: M PLALAB 16:18
PROVIDERS: ATTEND Physician Assistant
DX: I10 Essential (primary) hypertension (principal)

== ENCOUNTER 2023-02-19 02:04 | Emergency (ER) | payer OTHER ==
[~2023-02-19] VITALS: Ht 167.6 cm; Wt 58.0 kg
[2023-02-19] MEDS ORDERED: KETOROLAC 30 MG/ML 1ML VIAL IV ONE (08:20)
[2023-02-19] MEDS ORDERED: NS 1,000 ML IV ONE (08:20)
[2023-02-19] MEDS ORDERED: ACETAMINOPHEN *IV* 1,000 MG in IV 1 EA IV ONE (08:20)
[2023-02-19] MEDS ORDERED: METOCLOPRAMIDE INJ 10MG/2ML VIAL IV ONE (08:20)
[2023-02-19 10:36] VITALS: BP 136/67; TEMP 98.9; O2SAT 98
== END 2023-02-19 11:06 | disposition home or self-care (01) ==
LOC: M ED 02:04
DX: G43.909 Migraine, unspecified, not intractable, without status migrainosus (principal); D64.9 Anemia, unspecified; F32.A Depression, unspecified; Z85.43 Personal history of malignant neoplasm of ovary; Z79.01 Long term (current) use of anticoagulants; Z79.899 Other long term (current) drug therapy
CPT/HCPCS: 96365; 96366; 96375; 99284; J0131; J1100; J1885; J2765

== ENCOUNTER 2023-02-20 23:43 | Inpatient (IN) | payer OTHER ==
[~2023-02-20] VITALS: Ht 165.1 cm; Wt 58.4 kg
[2023-02-21] VITALS (14 sets, daily range): BP systolic 146–174; BP diastolic 77–106; TEMP 97.4–99.6; O2SAT 88–99
[2023-02-21 02:26] LABS: BASO # 0.1 10^3/uL (0.0-0.2); BASO % 0.6 % (0.0-1.0); EOS # 0.6 10^3/uL (0.0-0.5); EOS % 6.4 % (0.0-3.0); LYMPH # 1.2 10^3/uL (1.5-5.0); LYMPH % 13.6 % (24.0-44.0); MEAN CORPUSCULAR HEMOGLOBIN 32.2 pg (27.0-33.0); MEAN CORPUSCULAR VOLUME 100.5 fl (80.0-96.0); MONO # 0.4 10^3/uL (0.0-0.8); MONO % 4.5 % (2.0-8.0); NEUTROPHILS # 6.5 10^3/uL (1.5-8.5); NEUTROPHILS % 74.4 % (36.0-66.0); PLATELET COUNT, AUTOMATED 194 10^3/uL (150-450); RED BLOOD COUNT 2.05 10^6/uL (4.00-5.40); WHITE BLOOD COUNT 8.7 10^3/uL (4.0-10.0)
[2023-02-21 02:34] LABS: HEMATOCRIT 20.6 % (36.0-47.0)
[2023-02-21 02:35] LABS: HEMOGLOBIN 6.6 g/dl (12.0-15.5)
[2023-02-21 02:51] LABS: ALKALINE PHOSPHATASE 79 U/L (46-116); ALT/SGPT 41 U/L (7.0-40); AST/SGOT 33 U/L (<34); BILIRUBIN,DIRECT 0.1 MG/DL (<0.4); BILIRUBIN,TOTAL 0.5 MG/DL (0.3-1.2); BLOOD UREA NITROGEN 36 MG/DL (9-23); CALCIUM LEVEL 8.2 MG/DL (8.5-10.1); CARBON DIOXIDE LEVEL 20 MMOL/L (20-31); CHLORIDE LEVEL 110 MMOL/L (98-107); CK-MB VALUE MASS < 1.0 NG/ML (<3.6); CPK CREATINE PHOSPHOKINASE 85 U/L (34-145); CREATININE FOR GFR 1.54 MG/DL (0.55-1.30); GLOMERULAR FILTRATION RATE 37.5 (>51); GLUCOSE, FASTING 83 MG/DL (60-100); MB/CK RELATIVE INDEX 1.17 (< OR =4); SODIUM LEVEL 138 MMOL/L (136-145); TOTAL PROTEIN 5.7 G/DL (5.7-8.2)
[2023-02-21 02:57] LABS: RSV AMPLIFICATION NEGATIVE (NEGATIVE)
[2023-02-21] MEDS ORDERED: ISOVUE-370 76% 100ML VIAL As Ordered ONE (03:43)
[2023-02-21] MEDS ORDERED: FUROSEMIDE 100MG/10ML VIAL IV ONE (04:10)
[2023-02-21] MEDS ORDERED: AZITHROMYCIN INJ 500 MG, VIAL MATE ADAPTER 1 EACH in NS 250 ML IV ONE (04:50)
[2023-02-21] MEDS ORDERED: cefTRIAXone SOD 1 GM in D5W MINI-BAG PLUS 50 ML IV ONE (04:50)
[2023-02-21] MEDS ORDERED: ALBUTEROL SULFATE 2.5MG/0.5ML INH NEB SOLN INH PRN (05:30)
[2023-02-21] MEDS ORDERED: MORPHINE 2 MG/ML 1ML VIAL IV PRN (05:30)
[2023-02-21] MEDS ORDERED: ONDANSETRON 4MG 2ML VIAL IV PRN (05:30)
[2023-02-21] MEDS ORDERED: IRBE300T7 PO (05:40)
[2023-02-21] MEDS ORDERED: ASPI-161 PO (05:40)
[2023-02-21] MEDS ORDERED: FURO20TA2 PO (05:40)
[2023-02-21] MEDS ORDERED: ALPR0.25 PO (05:40)
[2023-02-21] MEDS ORDERED: POTA-136 PO (05:40)
[2023-02-21] MEDS ORDERED: METO1TAB32 PO (05:40)
[2023-02-21] MEDS ORDERED: OMEP-173 PO (05:45)
[2023-02-21] MEDS ORDERED: CETI-24 PO (05:45)
[2023-02-21] MEDS ORDERED: VITA500T40 PO (05:45)
[2023-02-21] MEDS ORDERED: SLOW160T12 PO (05:45)
[2023-02-21] MEDS ORDERED: HOME MED LIST COMPLETE! XX SCH (05:50)
[2023-02-21] MEDS ORDERED: hydroCHLOROthiazide 12.5 MG CAPSULE PO ONE (08:00)
[2023-02-21] MEDS ORDERED: ENOXAPARIN 40MG/0.4ML SYRINGE (J1650 PER 10MG) SC SCH (09:00)
[2023-02-21] MEDS ORDERED: OMEPRAZOLE 20MG CAP PO SCH (09:00)
[2023-02-21] MEDS ORDERED: FUROSEMIDE 40 MG TAB PO SCH (09:00)
[2023-02-21 10:18] LABS: VITAMIN B12 LEVEL 1400 PG/ML (211-911)
[2023-02-21] MEDS ORDERED: **hydrALAZINE** 10 MG TAB PO PRN (10:55)
[2023-02-21 13:23] LABS: HEMATOCRIT 31.1 % (36.0-47.0); MEAN CORPUSCULAR HEMOGLOBIN 31.1 pg (27.0-33.0); MEAN CORPUSCULAR HGB CONC 32.8 g/dl (32.0-36.5); MEAN CORPUSCULAR VOLUME 94.8 fl (80.0-96.0); PLATELET COUNT, AUTOMATED 244 10^3/uL (150-450); RED BLOOD COUNT 3.28 10^6/uL (4.00-5.40); WHITE BLOOD COUNT 8.9 10^3/uL (4.0-10.0)
[2023-02-21 13:24] LABS: HEMOGLOBIN 10.2 g/dl (12.0-15.5)
[2023-02-21] MEDS: **hydrALAZINE** 10 MG TAB PO SCH ×2 (14:00→22:27)
[2023-02-21] MEDS ORDERED: ISOSORBIDE DIN (ISORDIL) 10MG TAB PO ONE (14:30)
[2023-02-21] MEDS ORDERED: FUROSEMIDE 20MG/2ML VIAL IV ONE (17:00)
[2023-02-21] MEDS ORDERED: PROMETHAZINE 25MG/ML 1ML VIAL IV ONE (17:05)
[2023-02-21 17:08] LABS: HEMATOCRIT 28.9 % (36.0-47.0); HEMOGLOBIN 9.6 g/dl (12.0-15.5)
[2023-02-21] MEDS ORDERED: FIORICET TAB PO ONE ×2 (17:10→17:50)
[2023-02-21] MEDS ORDERED: **hydrALAZINE** 10 MG TAB PO ONE (17:50)
[2023-02-21] MEDS: PANTOPRAZOLE 40MG VIAL IV SCH (20:27)
[2023-02-21] MEDS: ACETAMINOPHEN TAB 650MG DOSE (2X325MG) PO PRN ×2 (20:27→22:46)
[2023-02-21] MEDS: FLUoxetine 20MG CAP PO SCH (20:27)
[2023-02-21] MEDS: ASPIRIN 81MG ENTERIC TABLET PO SCH (20:27)
[2023-02-21] MEDS: ATORVASTATIN 20 MG TAB PO SCH (20:28)
[2023-02-21] MEDS ORDERED: METOPROLOL SUCC *XL* 25MG TAB (TopROL *XL*) PO SCH (21:00)
[2023-02-21] MEDS ORDERED: IRBESARTAN 150MG TAB PO SCH (21:00)
[2023-02-21] MEDS ORDERED: METOPROLOL SUCC (TopROL XL) 50MG **XL** TAB PO SCH (21:00)
[2023-02-21] MEDS: ISOSORBIDE DIN. (ISORDIL) 20 MG TAB PO SCH (22:27)
[2023-02-22] VITALS (27 sets, daily range): BP systolic 120–198; BP diastolic 64–102; TEMP 97.1–98.4; O2SAT 90–99
[2023-02-22] MEDS ORDERED: IBUPROFEN 400MG TAB PO ONE (05:00)
[2023-02-22] MEDS: ACETAMINOPHEN TAB 650MG DOSE (2X325MG) PO PRN ×3 (05:05→20:19)
[2023-02-22] MEDS: ISOSORBIDE DIN. (ISORDIL) 20 MG TAB PO SCH ×2 (05:06→15:29)
[2023-02-22] MEDS: **hydrALAZINE** 10 MG TAB PO SCH ×3 (05:06→21:17)
[2023-02-22] MEDS ORDERED: cefTRIAXone SOD 1 GM in D5W MINI-BAG PLUS 50 ML IV SCH (06:00)
[2023-02-22 06:04] LABS: BASO # 0.1 10^3/uL (0.0-0.2); BASO % 1.1 % (0.0-1.0); EOS # 0.5 10^3/uL (0.0-0.5); EOS % 9.5 % (0.0-3.0); HEMATOCRIT 26.3 % (36.0-47.0); HEMOGLOBIN 8.5 g/dl (12.0-15.5); LYMPH % 18.9 % (24.0-44.0); MEAN CORPUSCULAR HEMOGLOBIN 30.9 pg (27.0-33.0); MEAN CORPUSCULAR HGB CONC 32.3 g/dl (32.0-36.5); MEAN CORPUSCULAR VOLUME 95.6 fl (80.0-96.0); MONO # 0.4 10^3/uL (0.0-0.8); MONO % 7.6 % (2.0-8.0); NEUTROPHILS # 3.3 10^3/uL (1.5-8.5); NEUTROPHILS % 62.7 % (36.0-66.0); PLATELET COUNT, AUTOMATED 198 10^3/uL (150-450); RED BLOOD COUNT 2.75 10^6/uL (4.00-5.40); WHITE BLOOD COUNT 5.3 10^3/uL (4.0-10.0)
[2023-02-22 06:27] LABS: CK-MB VALUE MASS 1.6 NG/ML (<3.6)
[2023-02-22 06:31] LABS: CALCIUM LEVEL 8.5 MG/DL (8.5-10.1); CREATININE FOR GFR 1.95 MG/DL (0.55-1.30); GLOMERULAR FILTRATION RATE 28.6 (>51); MAGNESIUM LEVEL 1.7 MG/DL (1.8-2.4); MB/CK RELATIVE INDEX 3.07 (< OR =4); POTASSIUM SERUM 4.4 MMOL/L (3.5-5.1)
[2023-02-22] MEDS ORDERED: hydroCHLOROthiazide 12.5 MG CAPSULE PO SCH (09:00)
[2023-02-22] MEDS ORDERED: FUROSEMIDE 40MG/4ML VIAL IV SCH (09:00)
[2023-02-22] MEDS ORDERED: AZITHROMYCIN 250MG TABLET PO SCH (09:00)
[2023-02-22] MEDS: PANTOPRAZOLE 40MG VIAL IV SCH ×2 (09:54→20:19)
[2023-02-22] MEDS: FUROSEMIDE 20MG/2ML VIAL IV SCH ×2 (09:54→18:24)
[2023-02-22] MEDS ORDERED: MAG SULF 1GM/100ML (MAG RUN) 1 GM in IV 1 EA IV ONE (11:00)
[2023-02-22] MEDS ORDERED: FIORICET TAB PO ONE ×2 (11:35→20:20)
[2023-02-22] MEDS ORDERED: SUMAtriptan SUCCINATE 25 MG TAB PO PRN (15:50)
[2023-02-22] MEDS ORDERED: PILL CUTTER 1 EACH XX PRN (16:00)
[2023-02-22] MEDS: FLUoxetine 20MG CAP PO SCH (20:17)
[2023-02-22] MEDS: ASPIRIN 81MG ENTERIC TABLET PO SCH (20:17)
[2023-02-22] MEDS: METOPROLOL SUCC *XL* 25MG TAB (TopROL *XL*) PO SCH (20:18)
[2023-02-22] MEDS: ATORVASTATIN 20 MG TAB PO SCH (20:19)
[2023-02-22] MEDS: ISOSORBIDE DIN. (ISORDIL) 30 MG TAB PO SCH (21:16)
[2023-02-22] MEDS ORDERED: SUMAtriptan SUCCINATE 25 MG TAB PO ONE (23:40)
[2023-02-23] VITALS (26 sets, daily range): BP systolic 124–173; BP diastolic 76–98; TEMP 97.5–98.7; O2SAT 94–99
[2023-02-23] MEDS: ALPRAZolam 0.25 MG TAB PO PRN ×2 (03:05→21:47)
[2023-02-23 06:06] LABS: BASO # 0.1 10^3/uL (0.0-0.2); BASO % 0.8 % (0.0-1.0); EOS # 1.2 10^3/uL (0.0-0.5); EOS % 12.7 % (0.0-3.0); HEMATOCRIT 29.9 % (36.0-47.0); HEMOGLOBIN 9.7 g/dl (12.0-15.5); LYMPH # 0.9 10^3/uL (1.5-5.0); MEAN CORPUSCULAR HEMOGLOBIN 30.9 pg (27.0-33.0); MEAN CORPUSCULAR HGB CONC 32.4 g/dl (32.0-36.5); MEAN CORPUSCULAR VOLUME 95.2 fl (80.0-96.0); MONO # 0.5 10^3/uL (0.0-0.8); MONO % 5.4 % (2.0-8.0); NEUTROPHILS # 6.5 10^3/uL (1.5-8.5); NEUTROPHILS % 70.9 % (36.0-66.0); PLATELET COUNT, AUTOMATED 215 10^3/uL (150-450); RED BLOOD COUNT 3.14 10^6/uL (4.00-5.40); WHITE BLOOD COUNT 9.2 10^3/uL (4.0-10.0)
[2023-02-23] MEDS: ISOSORBIDE DIN. (ISORDIL) 30 MG TAB PO SCH (06:12)
[2023-02-23] MEDS: **hydrALAZINE** 10 MG TAB PO SCH (06:13)
[2023-02-23 06:42] LABS: CALCIUM LEVEL 8.6 MG/DL (8.5-10.1); CREATININE FOR GFR 1.95 MG/DL (0.55-1.30); GLOMERULAR FILTRATION RATE 28.6 (>51); MAGNESIUM LEVEL 1.9 MG/DL (1.8-2.4); POTASSIUM SERUM 4.3 MMOL/L (3.5-5.1)
[2023-02-23] MEDS ORDERED: **hydrALAZINE HCL** 25 MG TAB PO ONE (07:30)
[2023-02-23] MEDS ORDERED: TORSEMIDE 20 MG TAB PO SCH (09:00)
[2023-02-23] MEDS: DAPAGLIFLOZIN PROPANEDIOL 10MG TABLET (FARXIGA) PO SCH (09:32)
[2023-02-23] MEDS ORDERED: PERCOCET 5MG/325MG TAB PO ONE (09:40)
[2023-02-23] MEDS ORDERED: METOCLOPRAMIDE INJ 10MG/2ML VIAL IV ONE (09:45)
[2023-02-23] MEDS: PANTOPRAZOLE 40MG VIAL IV SCH ×2 (09:57→19:57)
[2023-02-23] MEDS: ENTRESTO 24-26MG TABLET (SACUBITRIL/VALSARTAN) PO SCH ×2 (09:58→19:58)
[2023-02-23] MEDS ORDERED: SUMAtriptan SUCCINATE 25 MG TAB PO PRN (11:00)
[2023-02-23] MEDS ORDERED: **hydrALAZINE** 50 MG TAB PO SCH (14:00)
[2023-02-23 14:55] LABS: TOTAL PROTEIN 24 HOUR URINE 1929.3 MG/24HR (50-80); URINE TOTAL PROTEIN 82.1 MG/DL (0-14)
[2023-02-23] MEDS ORDERED: FIORICET TAB PO ONE (15:15)
[2023-02-23] MEDS ORDERED: VALPROATE SOD INJ 1,000 MG in D5W 50 ML IV ONE (16:00)
[2023-02-23] MEDS ORDERED: MAG SULF 1GM/100ML (MAG RUN) 1 GM in IV 1 EA IV ONE (16:00)
[2023-02-23 16:08] LABS: BODY FLUID CULTURE Not indicated. (.); LEGIONELLA ANTIGEN URINE Negative (Negative); ORGANISM ID Not indicated. (.); SPECIMEN SOURCE Urine (.); URINE STREP PNEUMONIAE ANTIGEN Negative (Negative)
[2023-02-23] MEDS: ASPIRIN 81MG ENTERIC TABLET PO SCH (19:57)
[2023-02-23] MEDS: ATORVASTATIN 20 MG TAB PO SCH (19:57)
[2023-02-23] MEDS: METOPROLOL SUCC *XL* 25MG TAB (TopROL *XL*) PO SCH (19:58)
[2023-02-23] MEDS: FLUoxetine 20MG CAP PO SCH (19:58)
[2023-02-23] MEDS: HEPARIN SOD (PORCINE) 5000UNITS/ML 1ML VIAL/SYRINGE SQ SCH (21:48)
[2023-02-24] VITALS (17 sets, daily range): BP systolic 132–168; BP diastolic 82–94; TEMP 98–98.6; O2SAT 93–97
[2023-02-24] MEDS ORDERED: ENTRESTO 24-26MG TABLET (SACUBITRIL/VALSARTAN) PO SCH
[2023-02-24] MEDS: HEPARIN SOD (PORCINE) 5000UNITS/ML 1ML VIAL/SYRINGE SQ SCH ×2 (06:49→14:52)
[2023-02-24 07:00] LABS: BASO # 0.1 10^3/uL (0.0-0.2); BASO % 0.7 % (0.0-1.0); EOS # 1.4 10^3/uL (0.0-0.5); EOS % 16.7 % (0.0-3.0); HEMATOCRIT 33.2 % (36.0-47.0); LYMPH % 12.7 % (24.0-44.0); MEAN CORPUSCULAR HEMOGLOBIN 31.1 pg (27.0-33.0); MEAN CORPUSCULAR HGB CONC 33.1 g/dl (32.0-36.5); MEAN CORPUSCULAR VOLUME 93.8 fl (80.0-96.0); MONO # 0.5 10^3/uL (0.0-0.8); MONO % 6.2 % (2.0-8.0); NEUTROPHILS # 5.2 10^3/uL (1.5-8.5); NEUTROPHILS % 63.3 % (36.0-66.0); PLATELET COUNT, AUTOMATED 246 10^3/uL (150-450); RED BLOOD COUNT 3.54 10^6/uL (4.00-5.40); WHITE BLOOD COUNT 8.2 10^3/uL (4.0-10.0)
[2023-02-24 07:26] LABS: CALCIUM LEVEL 8.5 MG/DL (8.5-10.1); CREATININE FOR GFR 1.59 MG/DL (0.55-1.30); GLOMERULAR FILTRATION RATE 36.2 (>51); POTASSIUM SERUM 4.1 MMOL/L (3.5-5.1)
[2023-02-24] MEDS ORDERED: TORSEMIDE 20 MG TAB PO SCH (09:00)
[2023-02-24] MEDS: DAPAGLIFLOZIN PROPANEDIOL 10MG TABLET (FARXIGA) PO SCH (09:59)
[2023-02-24] MEDS: PANTOPRAZOLE 40MG VIAL IV SCH (10:00)
[2023-02-24] MEDS: ENTRESTO 24-26MG TABLET (SACUBITRIL/VALSARTAN) PO SCH (10:00)
[2023-02-24] MEDS ORDERED: SPIRONOLACTONE 12.5MG PER 1/2 TABLET PO SCH (11:10)
[2023-02-24] MEDS ORDERED: ATOR40TA75 PO (11:11)
[2023-02-24] MEDS ORDERED: ENTR1TAB PO (11:11)
[2023-02-24] MEDS ORDERED: JARD1TAB PO (11:11)
[2023-02-24] MEDS ORDERED: SUMA100T2 PO (11:11)
[2023-02-24] MEDS ORDERED: TORS20TA2 PO (11:11)
[2023-02-24] MEDS ORDERED: FIOR1CAP PO (11:11)
[2023-02-24] MEDS ORDERED: METOPROLOL SUCC *XL* 12.5MG PER 1/2 TAB (TopROL *XL*) PO ONE (12:00)
[2023-02-24] MEDS ORDERED: ALDA25TA2 PO (13:40)
[2023-02-24] MEDS ORDERED: TOPR50TA PO ×2 (13:40→13:43)
== END 2023-02-24 16:05 | disposition home health service (06) | DRG 280 ==
LOC: M ED 23:43 → M ED INP 02-21 05:26 → M PCU 02-21 16:09
PROVIDERS: ADMIT Internal Medicine; ATTEND Internal Medicine
PROC: B246ZZZ Ultrasonography of Right and Left Heart (ICD-10-PCS; principal; 2023-02-21)
PROC: 30233N1 Transfusion of Nonautologous Red Blood Cells into Peripheral Vein, Percutaneous Approach (ICD-10-PCS; 2023-02-21)
DX: I13.0 Hypertensive heart and chronic kidney disease with heart failure and stage 1 through stage 4 chronic kidney disease, or unspecified chronic kidney disease (principal); I21.A1 Myocardial infarction type 2; I50.21 Acute systolic (congestive) heart failure; J96.01 Acute respiratory failure with hypoxia; C56.3 Malignant neoplasm of bilateral ovaries; N17.9 Acute kidney failure, unspecified; D62 Acute posthemorrhagic anemia; C78.6 Secondary malignant neoplasm of retroperitoneum and peritoneum; N04.9 Nephrotic syndrome with unspecified morphologic changes; I31.39 Other pericardial effusion (noninflammatory); D63.1 Anemia in chronic kidney disease; N18.9 Chronic kidney disease, unspecified; K21.9 Gastro-esophageal reflux disease without esophagitis; F32.A Depression, unspecified; G47.00 Insomnia, unspecified; K29.70 Gastritis, unspecified, without bleeding; E83.42 Hypomagnesemia; I42.7 Cardiomyopathy due to drug and external agent; T45.1X5A Adverse effect of antineoplastic and immunosuppressive drugs, initial encounter; I27.20 Pulmonary hypertension, unspecified; G43.909 Migraine, unspecified, not intractable, without status migrainosus; Z80.3 Family history of malignant neoplasm of breast; Z80.41 Family history of malignant neoplasm of ovary; Z86.73 Personal history of transient ischemic attack (TIA), and cerebral infarction without residual deficits; Z79.82 Long term (current) use of aspirin; Z79.899 Other long term (current) drug therapy

== ENCOUNTER → 2023-04-12 | Outpatient (REF) | payer OTHER ==
[~2023-04-12] MED LIST changes: +ALDA25TA2 PO; +ALPR0.25 PO; +ASPI-161 PO; +ATOR40TA75 PO; +CETI-24 PO; +ENTR1TAB PO; +FIOR1CAP PO; +FURO20TA2 PO; +IRBE300T7 PO; +JARD1TAB PO; +METO1TAB32 PO; +OMEP-173 PO; +POTA-136 PO; +SLOW160T12 PO; +SUMA100T2 PO; +TOPR50TA PO; +TORS20TA2 PO; +VITA500T40 PO
[2023-04-12 18:23] LABS: CREATININE,RANDOM URINE 117.1 MG/DL
[2023-04-12 18:33] LABS: TOTAL PROTEIN,RANDOM URINE 295.7 MG/DL (0.0-14.0)
== END ==
LOC: M LAB REF 16:57
PROVIDERS: ATTEND Internal Medicine Nephrology
DX: N18.32 Chronic kidney disease, stage 3b (principal)

== ENCOUNTER → 2023-05-31 | Outpatient (CLI) | payer OTHER ==
[2023-05-31 16:09] LABS: BASO % 0.7 % (0.0-1.0); EOS # 0.1 10^3/uL (0.0-0.5); EOS % 3.1 % (0.0-3.0); HEMATOCRIT 27.3 % (36.0-47.0); HEMOGLOBIN 8.4 g/dl (12.0-15.5); LYMPH # 1.5 10^3/uL (1.5-5.0); LYMPH % 33.2 % (24.0-44.0); MEAN CORPUSCULAR HEMOGLOBIN 29.9 pg (27.0-33.0); MEAN CORPUSCULAR HGB CONC 30.8 g/dl (32.0-36.5); MEAN CORPUSCULAR VOLUME 97.2 fl (80.0-96.0); MONO # 0.3 10^3/uL (0.0-0.8); MONO % 7.1 % (2.0-8.0); NEUTROPHILS # 2.5 10^3/uL (1.5-8.5); NEUTROPHILS % 55.5 % (36.0-66.0); PLATELET COUNT, AUTOMATED 273 10^3/uL (150-450); RED BLOOD COUNT 2.81 10^6/uL (4.00-5.40); WHITE BLOOD COUNT 4.5 10^3/uL (4.0-10.0)
[2023-05-31 17:16] LABS: FERRITIN 385.1 NG/ML (7.3-270.7); THYROID STIMULATING HORMONE 1.081 uIU/ML (0.55-4.78)
[2023-05-31 17:17] LABS: FREE T4 1.09 NG/DL (0.89-1.76)
[2023-05-31 17:18] LABS: FOLATE 18.9 NG/ML (>5.4)
[2023-05-31 17:22] LABS: ALBUMIN 3.5 G/DL (3.2-5.2); BILIRUBIN,TOTAL 0.3 MG/DL (0.3-1.2); CALCIUM LEVEL 8.4 MG/DL (8.5-10.1); CREATININE FOR GFR 2.07 MG/DL (0.55-1.30); GLOMERULAR FILTRATION RATE 26.6 (>51); PERCENT SATURATION 23.5 % (13.2-45.0); POTASSIUM SERUM 3.8 MMOL/L (3.5-5.1); TOTAL PROTEIN 6.4 G/DL (5.7-8.2)
== END ==
LOC: M PLALAB 14:08
PROVIDERS: ATTEND Physician Assistant
DX: D64.9 Anemia, unspecified (principal)

== ENCOUNTER 2023-06-22 10:41 | Outpatient (CLI) | payer OTHER ==
[~2023-06-22] VITALS: Ht 167.6 cm; Wt 56.8 kg
[2023-06-22 11:40] VITALS: BP 154/74; TEMP 98.9; O2SAT 100
[2023-06-22 11:55] VITALS: BP 140/76; TEMP 97.6; O2SAT 100
[2023-06-22 13:48] VITALS: BP 174/89; TEMP 97.7; O2SAT 96
[2023-06-22 14:05] VITALS: BP 157/84; TEMP 99; O2SAT 97
[2023-06-22 15:30] VITALS: BP 178/81; TEMP 98.8; O2SAT 98
== END 2023-06-22 15:35 | disposition home or self-care (01) ==
LOC: M INFU 10:41
PROVIDERS: ATTEND Specialist
DX: D64.9 Anemia, unspecified (principal)
CPT/HCPCS: 36430; P9016

== ENCOUNTER → 2023-06-27 | Outpatient (REF) | payer OTHER ==
[2023-06-27 18:23] LABS: CREATININE,RANDOM URINE 135.5 MG/DL
[2023-06-27 18:25] LABS: TOTAL PROTEIN,RANDOM URINE 299.8 MG/DL (0.0-14.0)
== END ==
LOC: M LAB REF 17:03
PROVIDERS: ATTEND Internal Medicine Nephrology
DX: N18.32 Chronic kidney disease, stage 3b (principal)

== ENCOUNTER → 2023-07-17 | Outpatient (CLI) | payer OTHER ==
[~2023-07-17] MED LIST changes: +IRBE300T25 PO; -IRBE300T7 PO
[2023-07-17 18:16] LABS: ALBUMIN 3.9 G/DL (3.2-5.2); BILIRUBIN,TOTAL 0.4 MG/DL (0.3-1.2); CALCIUM LEVEL 8.9 MG/DL (8.5-10.1); CREATININE FOR GFR 1.13 MG/DL (0.55-1.30); GLOMERULAR FILTRATION RATE 53.4 (>51); POTASSIUM SERUM 4.8 MMOL/L (3.5-5.1); TOTAL PROTEIN 7.1 G/DL (5.7-8.2)
[2023-07-17 18:32] LABS: BASO # 0.1 10^3/uL (0.0-0.2); BASO % 0.8 % (0.0-1.0); EOS # 0.4 10^3/uL (0.0-0.5); EOS % 6.5 % (0.0-3.0); LYMPH # 1.8 10^3/uL (1.5-5.0); LYMPH % 30.6 % (24.0-44.0); MEAN CORPUSCULAR HEMOGLOBIN 30.4 pg (27.0-33.0); MEAN CORPUSCULAR HGB CONC 31.3 g/dl (32.0-36.5); MEAN CORPUSCULAR VOLUME 97.3 fl (80.0-96.0); MONO # 0.4 10^3/uL (0.0-0.8); MONO % 5.9 % (2.0-8.0); NEUTROPHILS # 3.3 10^3/uL (1.5-8.5); PLATELET COUNT, AUTOMATED 322 10^3/uL (150-450); RED BLOOD COUNT 3.29 10^6/uL (4.00-5.40); WHITE BLOOD COUNT 5.9 10^3/uL (4.0-10.0)
== END ==
LOC: M PLALAB 16:19
DX: C56.9 Malignant neoplasm of unspecified ovary (principal)

== ENCOUNTER → 2023-08-07 | Outpatient (CLI) | payer OTHER ==
[~2023-08-07] MED LIST changes: -ASPI-161 PO; +ASPI-615 PO
[2023-08-07 16:25] LABS: BASO % 0.4 % (0.0-1.0); EOS # 0.3 10^3/uL (0.0-0.5); EOS % 5.2 % (0.0-3.0); HEMATOCRIT 32.4 % (36.0-47.0); HEMOGLOBIN 10.2 g/dl (12.0-15.5); LYMPH # 1.5 10^3/uL (1.5-5.0); LYMPH % 28.4 % (24.0-44.0); MEAN CORPUSCULAR HEMOGLOBIN 30.3 pg (27.0-33.0); MEAN CORPUSCULAR HGB CONC 31.5 g/dl (32.0-36.5); MEAN CORPUSCULAR VOLUME 96.1 fl (80.0-96.0); MONO # 0.3 10^3/uL (0.0-0.8); MONO % 5.7 % (2.0-8.0); NEUTROPHILS # 3.1 10^3/uL (1.5-8.5); NEUTROPHILS % 59.9 % (36.0-66.0); PLATELET COUNT, AUTOMATED 324 10^3/uL (150-450); RED BLOOD COUNT 3.37 10^6/uL (4.00-5.40); WHITE BLOOD COUNT 5.2 10^3/uL (4.0-10.0)
[2023-08-07 16:39] LABS: ALBUMIN 3.5 G/DL (3.2-5.2); BILIRUBIN,TOTAL 0.3 MG/DL (0.3-1.2); CALCIUM LEVEL 8.8 MG/DL (8.5-10.1); CREATININE FOR GFR 1.43 MG/DL (0.55-1.30); GLOMERULAR FILTRATION RATE 40.7 (>51); POTASSIUM SERUM 4.8 MMOL/L (3.5-5.1); TOTAL PROTEIN 6.6 G/DL (5.7-8.2)
== END ==
LOC: M PLALAB 14:16
PROVIDERS: ATTEND Physician Assistant Medical
DX: C56.9 Malignant neoplasm of unspecified ovary (principal)

== ENCOUNTER → 2023-09-18 | Outpatient (CLI) | payer OTHER ==
[2023-09-18 12:57] LABS: BASO % 0.8 % (0.0-1.0); EOS # 0.4 10^3/uL (0.0-0.5); EOS % 7.6 % (0.0-3.0); HEMATOCRIT 27.7 % (36.0-47.0); HEMOGLOBIN 8.7 g/dl (12.0-15.5); LYMPH # 1.3 10^3/uL (1.5-5.0); MEAN CORPUSCULAR HEMOGLOBIN 30.7 pg (27.0-33.0); MEAN CORPUSCULAR HGB CONC 31.4 g/dl (32.0-36.5); MEAN CORPUSCULAR VOLUME 97.9 fl (80.0-96.0); MONO # 0.4 10^3/uL (0.0-0.8); NEUTROPHILS % 59.4 % (36.0-66.0); PLATELET COUNT, AUTOMATED 246 10^3/uL (150-450); RED BLOOD COUNT 2.83 10^6/uL (4.00-5.40); WHITE BLOOD COUNT 5.1 10^3/uL (4.0-10.0)
[2023-09-18 13:22] LABS: ALBUMIN 3.5 G/DL (3.2-5.2); BILIRUBIN,TOTAL 0.4 MG/DL (0.3-1.2); CALCIUM LEVEL 8.8 MG/DL (8.5-10.1); CREATININE FOR GFR 1.06 MG/DL (0.55-1.30); GLOMERULAR FILTRATION RATE 57.5 (>51); POTASSIUM SERUM 4.8 MMOL/L (3.5-5.1); TOTAL PROTEIN 6.1 G/DL (5.7-8.2)
== END ==
LOC: M PLALAB 11:11
PROVIDERS: ATTEND Physician Assistant Medical
DX: C56.9 Malignant neoplasm of unspecified ovary (principal)

== ENCOUNTER → 2023-09-27 | Outpatient (REF) | payer OTHER ==
[2023-09-27 18:33] LABS: BASO % 0.8 % (0.0-1.0); EOS # 0.4 10^3/uL (0.0-0.5); EOS % 7.8 % (0.0-3.0); HEMATOCRIT 29.2 % (36.0-47.0); HEMOGLOBIN 9.2 g/dl (12.0-15.5); LYMPH # 1.3 10^3/uL (1.5-5.0); LYMPH % 24.6 % (24.0-44.0); MEAN CORPUSCULAR HEMOGLOBIN 30.4 pg (27.0-33.0); MEAN CORPUSCULAR HGB CONC 31.5 g/dl (32.0-36.5); MEAN CORPUSCULAR VOLUME 96.4 fl (80.0-96.0); MONO # 0.4 10^3/uL (0.0-0.8); MONO % 7.6 % (2.0-8.0); NEUTROPHILS # 3.1 10^3/uL (1.5-8.5); PLATELET COUNT, AUTOMATED 328 10^3/uL (150-450); RED BLOOD COUNT 3.03 10^6/uL (4.00-5.40); WHITE BLOOD COUNT 5.3 10^3/uL (4.0-10.0)
[2023-09-27 19:02] LABS: ALBUMIN 4.1 G/DL (3.2-5.2); BILIRUBIN,TOTAL 0.5 MG/DL (0.3-1.2); CREATININE FOR GFR 1.24 MG/DL (0.55-1.30); POTASSIUM SERUM 5.1 MMOL/L (3.5-5.1); TOTAL PROTEIN 7.1 G/DL (5.7-8.2)
== END ==
LOC: M LABDRAWP 17:35
PROVIDERS: ATTEND Physician Assistant Medical
DX: C56.9 Malignant neoplasm of unspecified ovary (principal)

== ENCOUNTER → 2023-10-16 | Outpatient (CLI) | payer OTHER ==
[2023-10-16 17:21] LABS: BASO % 0.8 % (0.0-1.0); EOS # 0.2 10^3/uL (0.0-0.5); EOS % 4.1 % (0.0-3.0); HEMATOCRIT 27.2 % (36.0-47.0); HEMOGLOBIN 8.7 g/dl (12.0-15.5); LYMPH # 1.7 10^3/uL (1.5-5.0); LYMPH % 33.5 % (24.0-44.0); MEAN CORPUSCULAR HEMOGLOBIN 31.3 pg (27.0-33.0); MEAN CORPUSCULAR VOLUME 97.8 fl (80.0-96.0); MONO # 0.4 10^3/uL (0.0-0.8); MONO % 7.3 % (2.0-8.0); NEUTROPHILS # 2.7 10^3/uL (1.5-8.5); NEUTROPHILS % 53.9 % (36.0-66.0); PLATELET COUNT, AUTOMATED 256 10^3/uL (150-450); RED BLOOD COUNT 2.78 10^6/uL (4.00-5.40); WHITE BLOOD COUNT 5.1 10^3/uL (4.0-10.0)
[2023-10-16 17:50] LABS: ALBUMIN 3.8 G/DL (3.2-5.2); BILIRUBIN,TOTAL 0.3 MG/DL (0.3-1.2); CALCIUM LEVEL 9.2 MG/DL (8.5-10.1); CREATININE FOR GFR 1.23 MG/DL (0.55-1.30); FOLLICLE STIMULATING HORMONE 126.3 mIU/ML; GLOMERULAR FILTRATION RATE 48.4 (>51); POTASSIUM SERUM 4.4 MMOL/L (3.5-5.1); TOTAL PROTEIN 6.6 G/DL (5.7-8.2)
[2023-10-16 17:51] LABS: LUTEINIZING HORMONE 60.5 mIU/ML; THYROID STIMULATING HORMONE 0.872 uIU/ML (0.55-4.78)
[2023-10-16 17:52] LABS: FREE T4 0.94 NG/DL (0.89-1.76)
== END ==
LOC: M PLALAB 16:11
PROVIDERS: ATTEND Physician Assistant
DX: I12.9 Hypertensive chronic kidney disease with stage 1 through stage 4 chronic kidney disease, or unspecified chronic kidney disease (principal)

== ENCOUNTER → 2023-10-16 | Outpatient (CLI) | payer OTHER ==
[2023-10-16 17:25] LABS: BASO % 0.8 % (0.0-1.0); EOS # 0.3 10^3/uL (0.0-0.5); HEMATOCRIT 27.2 % (36.0-47.0); HEMOGLOBIN 8.7 g/dl (12.0-15.5); LYMPH # 1.8 10^3/uL (1.5-5.0); LYMPH % 33.6 % (24.0-44.0); MEAN CORPUSCULAR HEMOGLOBIN 31.3 pg (27.0-33.0); MEAN CORPUSCULAR VOLUME 97.8 fl (80.0-96.0); MONO # 0.4 10^3/uL (0.0-0.8); MONO % 7.3 % (2.0-8.0); NEUTROPHILS # 2.8 10^3/uL (1.5-8.5); NEUTROPHILS % 53.1 % (36.0-66.0); PLATELET COUNT, AUTOMATED 263 10^3/uL (150-450); RED BLOOD COUNT 2.78 10^6/uL (4.00-5.40); WHITE BLOOD COUNT 5.2 10^3/uL (4.0-10.0)
[2023-10-16 17:47] LABS: ALBUMIN 3.4 G/DL (3.2-5.2); BILIRUBIN,TOTAL 0.3 MG/DL (0.3-1.2); CALCIUM LEVEL 8.7 MG/DL (8.5-10.1); CREATININE FOR GFR 1.22 MG/DL (0.55-1.30); GLOMERULAR FILTRATION RATE 48.9 (>51); POTASSIUM SERUM 4.3 MMOL/L (3.5-5.1); TOTAL PROTEIN 6.5 G/DL (5.7-8.2)
== END ==
LOC: M PLALAB 16:09
PROVIDERS: ATTEND Physician Assistant Medical
DX: C56.9 Malignant neoplasm of unspecified ovary (principal)

== ENCOUNTER → 2023-11-06 | Outpatient (CLI) | payer OTHER ==
[2023-11-06 17:52] LABS: BASO % 0.8 % (0.0-1.0); EOS # 0.2 10^3/uL (0.0-0.5); EOS % 4.6 % (0.0-3.0); HEMOGLOBIN 8.5 g/dl (12.0-15.5); LYMPH # 1.5 10^3/uL (1.5-5.0); LYMPH % 29.1 % (24.0-44.0); MEAN CORPUSCULAR HEMOGLOBIN 31.1 pg (27.0-33.0); MEAN CORPUSCULAR HGB CONC 31.5 g/dl (32.0-36.5); MEAN CORPUSCULAR VOLUME 98.9 fl (80.0-96.0); MONO # 0.5 10^3/uL (0.0-0.8); MONO % 9.2 % (2.0-8.0); NEUTROPHILS # 2.9 10^3/uL (1.5-8.5); NEUTROPHILS % 56.1 % (36.0-66.0); PLATELET COUNT, AUTOMATED 310 10^3/uL (150-450); RED BLOOD COUNT 2.73 10^6/uL (4.00-5.40); WHITE BLOOD COUNT 5.2 10^3/uL (4.0-10.0)
[2023-11-06 18:27] LABS: ALBUMIN 3.7 G/DL (3.2-5.2); BILIRUBIN,TOTAL 0.3 MG/DL (0.3-1.2); CALCIUM LEVEL 9.1 MG/DL (8.5-10.1); CREATININE FOR GFR 1.12 MG/DL (0.55-1.30); POTASSIUM SERUM 4.7 MMOL/L (3.5-5.1); TOTAL PROTEIN 6.7 G/DL (5.7-8.2)
== END ==
LOC: M PLALAB 16:06
PROVIDERS: ATTEND Physician Assistant Medical
DX: C56.9 Malignant neoplasm of unspecified ovary (principal)

== ENCOUNTER → 2023-11-27 | Outpatient (CLI) | payer OTHER ==
[~2023-11-27] MED LIST changes: +FLUO-365 PO; -FLUO20CA22 PO
[2023-11-27 19:04] LABS: ALBUMIN 3.6 G/DL (3.2-5.2); BILIRUBIN,TOTAL 0.3 MG/DL (0.3-1.2); CALCIUM LEVEL 8.9 MG/DL (8.5-10.1); CREATININE FOR GFR 1.06 MG/DL (0.55-1.30); GLOMERULAR FILTRATION RATE 57.5 (>51); POTASSIUM SERUM 4.5 MMOL/L (3.5-5.1); TOTAL PROTEIN 6.5 G/DL (5.7-8.2)
[2023-11-27 19:11] LABS: BASO % 0.6 % (0.0-1.0); EOS # 0.3 10^3/uL (0.0-0.5); EOS % 5.7 % (0.0-3.0); HEMOGLOBIN 8.3 g/dl (12.0-15.5); LYMPH # 1.5 10^3/uL (1.5-5.0); LYMPH % 29.1 % (24.0-44.0); MEAN CORPUSCULAR HEMOGLOBIN 31.7 pg (27.0-33.0); MEAN CORPUSCULAR HGB CONC 31.9 g/dl (32.0-36.5); MEAN CORPUSCULAR VOLUME 99.2 fl (80.0-96.0); MONO # 0.4 10^3/uL (0.0-0.8); NEUTROPHILS % 57.4 % (36.0-66.0); PLATELET COUNT, AUTOMATED 288 10^3/uL (150-450); RED BLOOD COUNT 2.62 10^6/uL (4.00-5.40); WHITE BLOOD COUNT 5.3 10^3/uL (4.0-10.0)
== END ==
LOC: M PLALAB 16:11
PROVIDERS: ATTEND Physician Assistant Medical
DX: C56.9 Malignant neoplasm of unspecified ovary (principal)

== ENCOUNTER → 2023-12-12 | Outpatient (CLI) | payer OTHER ==
[2023-12-12 18:29] LABS: BASO % 0.7 % (0.0-1.0); EOS # 0.3 10^3/uL (0.0-0.5); EOS % 5.1 % (0.0-3.0); HEMATOCRIT 27.7 % (36.0-47.0); HEMOGLOBIN 8.8 g/dl (12.0-15.5); LYMPH # 1.5 10^3/uL (1.5-5.0); LYMPH % 26.6 % (24.0-44.0); MEAN CORPUSCULAR HEMOGLOBIN 31.4 pg (27.0-33.0); MEAN CORPUSCULAR HGB CONC 31.8 g/dl (32.0-36.5); MEAN CORPUSCULAR VOLUME 98.9 fl (80.0-96.0); MONO # 0.4 10^3/uL (0.0-0.8); MONO % 7.1 % (2.0-8.0); NEUTROPHILS # 3.3 10^3/uL (1.5-8.5); NEUTROPHILS % 60.1 % (36.0-66.0); PLATELET COUNT, AUTOMATED 306 10^3/uL (150-450); WHITE BLOOD COUNT 5.5 10^3/uL (4.0-10.0)
[2023-12-12 18:35] LABS: ALBUMIN 3.8 G/DL (3.2-5.2); BILIRUBIN,TOTAL 0.2 MG/DL (0.3-1.2); CALCIUM LEVEL 9.2 MG/DL (8.5-10.1); CREATININE FOR GFR 1.11 MG/DL (0.55-1.30); GLOMERULAR FILTRATION RATE 54.5 (>51); POTASSIUM SERUM 4.4 MMOL/L (3.5-5.1); TOTAL PROTEIN 6.6 G/DL (5.7-8.2)
== END ==
LOC: M PLALAB 14:50
PROVIDERS: ATTEND Physician Assistant Medical
DX: C56.9 Malignant neoplasm of unspecified ovary (principal)

== ENCOUNTER → 2023-12-18 | Outpatient (CLI) | payer OTHER ==
[2023-12-18 19:27] LABS: BASO % 0.5 % (0.0-1.0); EOS # 0.2 10^3/uL (0.0-0.5); EOS % 3.5 % (0.0-3.0); HEMATOCRIT 25.9 % (36.0-47.0); HEMOGLOBIN 8.3 g/dl (12.0-15.5); LYMPH # 1.6 10^3/uL (1.5-5.0); LYMPH % 27.5 % (24.0-44.0); MEAN CORPUSCULAR HEMOGLOBIN 31.7 pg (27.0-33.0); MEAN CORPUSCULAR VOLUME 98.9 fl (80.0-96.0); MONO # 0.4 10^3/uL (0.0-0.8); MONO % 6.8 % (2.0-8.0); NEUTROPHILS # 3.5 10^3/uL (1.5-8.5); NEUTROPHILS % 61.4 % (36.0-66.0); PLATELET COUNT, AUTOMATED 276 10^3/uL (150-450); RED BLOOD COUNT 2.62 10^6/uL (4.00-5.40); WHITE BLOOD COUNT 5.8 10^3/uL (4.0-10.0)
[2023-12-18 20:16] LABS: ALBUMIN 3.7 G/DL (3.2-5.2); BILIRUBIN,TOTAL 0.4 MG/DL (0.3-1.2); CALCIUM LEVEL 9.1 MG/DL (8.5-10.1); CREATININE FOR GFR 1.2 MG/DL (0.55-1.30); GLOMERULAR FILTRATION RATE 49.8 (>51); POTASSIUM SERUM 4.5 MMOL/L (3.5-5.1); TOTAL PROTEIN 6.6 G/DL (5.7-8.2)
== END ==
LOC: M PLALAB 14:44
PROVIDERS: ATTEND Physician Assistant Medical
DX: C56.9 Malignant neoplasm of unspecified ovary (principal)

== ENCOUNTER → 2024-01-15 | Outpatient (CLI) | payer OTHER ==
[2024-01-15 18:19] LABS: BASO % 0.9 % (0.0-1.0); EOS # 0.2 10^3/uL (0.0-0.5); EOS % 4.5 % (0.0-3.0); HEMATOCRIT 27.7 % (36.0-47.0); HEMOGLOBIN 8.8 g/dl (12.0-15.5); LYMPH # 0.9 10^3/uL (1.5-5.0); MEAN CORPUSCULAR HEMOGLOBIN 31.1 pg (27.0-33.0); MEAN CORPUSCULAR HGB CONC 31.8 g/dl (32.0-36.5); MEAN CORPUSCULAR VOLUME 97.9 fl (80.0-96.0); MONO # 0.4 10^3/uL (0.0-0.8); MONO % 7.9 % (2.0-8.0); NEUTROPHILS # 2.9 10^3/uL (1.5-8.5); NEUTROPHILS % 65.5 % (36.0-66.0); PLATELET COUNT, AUTOMATED 297 10^3/uL (150-450); RED BLOOD COUNT 2.83 10^6/uL (4.00-5.40); WHITE BLOOD COUNT 4.4 10^3/uL (4.0-10.0)
[2024-01-15 18:21] LABS: ALBUMIN 3.6 G/DL (3.2-5.2); ALKALINE PHOSPHATASE 107 U/L (46-116); ALT/SGPT 34 U/L (7.0-40); AST/SGOT 19 U/L (<34); BILIRUBIN,TOTAL 0.3 MG/DL (0.3-1.2); BLOOD UREA NITROGEN 26 MG/DL (9-23); CALCIUM LEVEL 9.1 MG/DL (8.5-10.1); CARBON DIOXIDE LEVEL 28 MMOL/L (20-31); CHLORIDE LEVEL 107 MMOL/L (98-107); CREATININE FOR GFR 1.02 MG/DL (0.55-1.30); GLOMERULAR FILTRATION RATE > 60.0 (>51); GLUCOSE, FASTING 91 MG/DL (60-100); POTASSIUM SERUM 4.4 MMOL/L (3.5-5.1); SODIUM LEVEL 138 MMOL/L (136-145); TOTAL PROTEIN 6.5 G/DL (5.7-8.2)
== END ==
LOC: M PLALAB 14:45
PROVIDERS: ATTEND Physician Assistant Medical
DX: C56.9 Malignant neoplasm of unspecified ovary (principal)

== ENCOUNTER → 2024-01-26 | Outpatient (CLI) | payer OTHER ==
[2024-01-26 14:08] LABS: BASO % 0.7 % (0.0-1.0); EOS # 0.2 10^3/uL (0.0-0.5); EOS % 5.1 % (0.0-3.0); HEMATOCRIT 26.9 % (36.0-47.0); HEMOGLOBIN 8.6 g/dl (12.0-15.5); LYMPH # 0.9 10^3/uL (1.5-5.0); LYMPH % 21.7 % (24.0-44.0); MEAN CORPUSCULAR HEMOGLOBIN 31.4 pg (27.0-33.0); MEAN CORPUSCULAR VOLUME 98.2 fl (80.0-96.0); MONO # 0.3 10^3/uL (0.0-0.8); MONO % 5.8 % (2.0-8.0); NEUTROPHILS # 2.8 10^3/uL (1.5-8.5); NEUTROPHILS % 66.2 % (36.0-66.0); PLATELET COUNT, AUTOMATED 307 10^3/uL (150-450); RED BLOOD COUNT 2.74 10^6/uL (4.00-5.40); WHITE BLOOD COUNT 4.3 10^3/uL (4.0-10.0)
[2024-01-26 14:27] LABS: HEMOGLOBIN A1c 5.4 % (4.0-6.0)
[2024-01-26 14:34] LABS: C REACTIVE PROTEIN QUANTITATIV < 0.40 MG/DL (<1.0); FERRITIN 326.6 NG/ML (7.3-270.7); LDH LACTATE DEHYDROGENASE 156 U/L (120-246); TOTAL 25(OH) VITAMIN D 21.2 NG/ML (20.0-100.0)
[2024-01-26 14:35] LABS: IRON (FE) 51 UG/DL (50-170); PERCENT SATURATION 20.7 % (13.2-45.0); TOTAL IRON BINDING CAPACITY 246 UG/DL (250-425)
[2024-01-26 14:36] LABS: ALBUMIN 3.5 G/DL (3.2-5.2); ALKALINE PHOSPHATASE 93 U/L (46-116); ALT/SGPT 28 U/L (7.0-40); AST/SGOT 18 U/L (<34); BILIRUBIN,TOTAL 0.4 MG/DL (0.3-1.2); BLOOD UREA NITROGEN 21 MG/DL (9-23); CARBON DIOXIDE LEVEL 28 MMOL/L (20-31); CHLORIDE LEVEL 107 MMOL/L (98-107); CREATININE FOR GFR 1.14 MG/DL (0.55-1.30); FOLATE 17.66 NG/ML (>5.4); GLOMERULAR FILTRATION RATE 52.9 (>51); GLUCOSE, FASTING 85 MG/DL (60-100); POTASSIUM SERUM 4.5 MMOL/L (3.5-5.1); SODIUM LEVEL 140 MMOL/L (136-145); TOTAL PROTEIN 6.6 G/DL (5.7-8.2)
[2024-01-26 14:39] LABS: VITAMIN B12 LEVEL 811 PG/ML (211-911)
[2024-01-26 15:07] LABS: ERYTHROCYTE SEDIMENTATION RATE 32 mm/hr (0-30)
[2024-01-27 06:38] LABS: T P ELECTROPHORESIS SO 6.6 g/dL (6.1-8.1)
[2024-01-30 07:57] LABS: ALBUMIN SPEP 3.9 g/dL (3.8-4.8); ALPHA-1-GLOBULINS SO 0.3 g/dL (0.2-0.3); ALPHA-2-GLOBULINS SO 0.9 g/dL (0.5-0.9); BETA 2 GLOBULIN 0.3 g/dL (0.2-0.5); BETA-GLOBULIN SO 0.3 g/dL (0.4-0.6); GAMMA GLOBULINS SO 0.9 g/dL (0.8-1.7)
== END ==
LOC: M PLALAB 10:50
PROVIDERS: ATTEND Nurse Practitioner Family
DX: C56.2 Malignant neoplasm of left ovary (principal); D64.9 Anemia, unspecified; K21.9 Gastro-esophageal reflux disease without esophagitis; I12.9 Hypertensive chronic kidney disease with stage 1 through stage 4 chronic kidney disease, or unspecified chronic kidney disease; N18.9 Chronic kidney disease, unspecified

== ENCOUNTER → 2024-02-05 | Outpatient (CLI) | payer OTHER ==
[2024-02-05 17:26] LABS: BASO % 0.4 % (0.0-1.0); EOS # 0.2 10^3/uL (0.0-0.5); EOS % 4.8 % (0.0-3.0); HEMOGLOBIN 7.7 g/dl (12.0-15.5); LYMPH # 0.9 10^3/uL (1.5-5.0); MEAN CORPUSCULAR HEMOGLOBIN 31.6 pg (27.0-33.0); MEAN CORPUSCULAR HGB CONC 32.1 g/dl (32.0-36.5); MEAN CORPUSCULAR VOLUME 98.4 fl (80.0-96.0); MONO # 0.3 10^3/uL (0.0-0.8); MONO % 6.1 % (2.0-8.0); NEUTROPHILS # 3.2 10^3/uL (1.5-8.5); NEUTROPHILS % 69.3 % (36.0-66.0); PLATELET COUNT, AUTOMATED 289 10^3/uL (150-450); RED BLOOD COUNT 2.44 10^6/uL (4.00-5.40); WHITE BLOOD COUNT 4.6 10^3/uL (4.0-10.0)
[2024-02-05 17:48] LABS: ALBUMIN 3.6 G/DL (3.2-5.2); BILIRUBIN,TOTAL 0.4 MG/DL (0.3-1.2); CALCIUM LEVEL 9.2 MG/DL (8.5-10.1); CREATININE FOR GFR 1.04 MG/DL (0.55-1.30); GLOMERULAR FILTRATION RATE 58.8 (>51); POTASSIUM SERUM 4.4 MMOL/L (3.5-5.1); TOTAL PROTEIN 6.8 G/DL (5.7-8.2)
== END ==
LOC: M PLALAB 15:17
PROVIDERS: ATTEND Physician Assistant Medical
DX: C56.9 Malignant neoplasm of unspecified ovary (principal)

== ENCOUNTER → 2024-02-26 | Outpatient (CLI) | payer OTHER ==
[2024-02-26 18:02] LABS: BASO % 0.7 % (0.0-1.0); EOS # 0.2 10^3/uL (0.0-0.5); EOS % 5.7 % (0.0-3.0); HEMATOCRIT 21.6 % (36.0-47.0); LYMPH # 0.8 10^3/uL (1.5-5.0); LYMPH % 19.5 % (24.0-44.0); MEAN CORPUSCULAR HEMOGLOBIN 31.7 pg (27.0-33.0); MEAN CORPUSCULAR HGB CONC 32.4 g/dl (32.0-36.5); MEAN CORPUSCULAR VOLUME 97.7 fl (80.0-96.0); MONO # 0.4 10^3/uL (0.0-0.8); MONO % 8.6 % (2.0-8.0); NEUTROPHILS # 2.7 10^3/uL (1.5-8.5); NEUTROPHILS % 65.3 % (36.0-66.0); PLATELET COUNT, AUTOMATED 270 10^3/uL (150-450); RED BLOOD COUNT 2.21 10^6/uL (4.00-5.40); WHITE BLOOD COUNT 4.1 10^3/uL (4.0-10.0)
[2024-02-26 18:24] LABS: ALBUMIN 3.6 G/DL (3.2-5.2); BILIRUBIN,TOTAL 0.2 MG/DL (0.3-1.2); CALCIUM LEVEL 9.3 MG/DL (8.5-10.1); CREATININE FOR GFR 1.34 MG/DL (0.55-1.30); GLOMERULAR FILTRATION RATE 43.7 (>51); POTASSIUM SERUM 4.2 MMOL/L (3.5-5.1); TOTAL PROTEIN 6.7 G/DL (5.7-8.2)
== END ==
LOC: M PLALAB 16:08
PROVIDERS: ATTEND Nurse Practitioner
DX: C56.9 Malignant neoplasm of unspecified ovary (principal)

== ENCOUNTER → 2024-03-26 | Outpatient (CLI) | payer OTHER ==
[~2024-03-26] MED LIST changes: +ALPR0.5T3; +ENTR1TAB4; +EQL50TAB2 PO; +FLUO40CA; +VITA1CAP25
[2024-03-26 15:19] LABS: BASO % 0.8 % (0.0-1.0); EOS # 0.3 10^3/uL (0.0-0.5); EOS % 4.9 % (0.0-3.0); HEMATOCRIT 23.4 % (36.0-47.0); HEMOGLOBIN 7.4 g/dl (12.0-15.5); LYMPH # 1.1 10^3/uL (1.5-5.0); LYMPH % 21.2 % (24.0-44.0); MEAN CORPUSCULAR HEMOGLOBIN 30.2 pg (27.0-33.0); MEAN CORPUSCULAR HGB CONC 31.6 g/dl (32.0-36.5); MEAN CORPUSCULAR VOLUME 95.5 fl (80.0-96.0); MONO # 0.5 10^3/uL (0.0-0.8); MONO % 8.9 % (2.0-8.0); NEUTROPHILS # 3.4 10^3/uL (1.5-8.5); NEUTROPHILS % 63.8 % (36.0-66.0); PLATELET COUNT, AUTOMATED 307 10^3/uL (150-450); RED BLOOD COUNT 2.45 10^6/uL (4.00-5.40); WHITE BLOOD COUNT 5.3 10^3/uL (4.0-10.0)
== END ==
LOC: M PLALAB 13:15
PROVIDERS: ATTEND Specialist
DX: C56.9 Malignant neoplasm of unspecified ovary (principal)

== ENCOUNTER → 2024-04-02 | Outpatient (CLI) | payer OTHER ==
[2024-04-03 11:39] LABS: BASO % 0.8 % (0.0-1.0); EOS # 0.3 10^3/uL (0.0-0.5); EOS % 6.8 % (0.0-3.0); HEMATOCRIT 27.2 % (36.0-47.0); HEMOGLOBIN 8.8 g/dl (12.0-15.5); LYMPH # 1.1 10^3/uL (1.5-5.0); LYMPH % 23.1 % (24.0-44.0); MEAN CORPUSCULAR HGB CONC 32.4 g/dl (32.0-36.5); MEAN CORPUSCULAR VOLUME 95.8 fl (80.0-96.0); MONO # 0.3 10^3/uL (0.0-0.8); MONO % 5.8 % (2.0-8.0); NEUTROPHILS # 3.1 10^3/uL (1.5-8.5); NEUTROPHILS % 63.1 % (36.0-66.0); PLATELET COUNT, AUTOMATED 314 10^3/uL (150-450); RED BLOOD COUNT 2.84 10^6/uL (4.00-5.40); WHITE BLOOD COUNT 4.9 10^3/uL (4.0-10.0)
== END ==
LOC: M PLALAB 16:46
PROVIDERS: ATTEND Specialist
DX: C56.9 Malignant neoplasm of unspecified ovary (principal)

== ENCOUNTER → 2024-04-10 | Outpatient (CLI) | payer OTHER ==
[2024-04-10 18:20] LABS: BASO % 0.7 % (0.0-1.0); EOS # 0.3 10^3/uL (0.0-0.5); EOS % 7.2 % (0.0-3.0); HEMATOCRIT 25.6 % (36.0-47.0); HEMOGLOBIN 8.1 g/dl (12.0-15.5); LYMPH % 23.6 % (24.0-44.0); MEAN CORPUSCULAR HEMOGLOBIN 30.3 pg (27.0-33.0); MEAN CORPUSCULAR HGB CONC 31.6 g/dl (32.0-36.5); MEAN CORPUSCULAR VOLUME 95.9 fl (80.0-96.0); MONO # 0.4 10^3/uL (0.0-0.8); MONO % 8.7 % (2.0-8.0); NEUTROPHILS # 2.5 10^3/uL (1.5-8.5); NEUTROPHILS % 59.1 % (36.0-66.0); PLATELET COUNT, AUTOMATED 307 10^3/uL (150-450); RED BLOOD COUNT 2.67 10^6/uL (4.00-5.40); WHITE BLOOD COUNT 4.2 10^3/uL (4.0-10.0)
== END ==
LOC: M PLALAB 16:25
PROVIDERS: ATTEND Specialist
DX: C56.9 Malignant neoplasm of unspecified ovary (principal)

== ENCOUNTER → 2024-04-23 | Outpatient (REF) | payer OTHER ==
[2024-04-23 18:53] LABS: BASO % 0.6 % (0.0-1.0); EOS # 0.2 10^3/uL (0.0-0.5); EOS % 2.8 % (0.0-3.0); HEMATOCRIT 24.8 % (36.0-47.0); HEMOGLOBIN 7.9 g/dl (12.0-15.5); LYMPH # 0.9 10^3/uL (1.5-5.0); LYMPH % 16.4 % (24.0-44.0); MEAN CORPUSCULAR HEMOGLOBIN 30.4 pg (27.0-33.0); MEAN CORPUSCULAR HGB CONC 31.9 g/dl (32.0-36.5); MEAN CORPUSCULAR VOLUME 95.4 fl (80.0-96.0); MONO # 0.6 10^3/uL (0.0-0.8); MONO % 11.5 % (2.0-8.0); NEUTROPHILS # 3.5 10^3/uL (1.5-8.5); NEUTROPHILS % 66.8 % (36.0-66.0); PLATELET COUNT, AUTOMATED 342 10^3/uL (150-450); WHITE BLOOD COUNT 5.3 10^3/uL (4.0-10.0)
[2024-04-23 19:22] LABS: BILIRUBIN,TOTAL 0.5 MG/DL (0.3-1.2); CALCIUM LEVEL 8.7 MG/DL (8.5-10.1); CREATININE FOR GFR 1.3 MG/DL (0.55-1.30); GLOMERULAR FILTRATION RATE 45.3 (>51); MAGNESIUM LEVEL 1.9 MG/DL (1.8-2.4); POTASSIUM SERUM 4.2 MMOL/L (3.5-5.1); TOTAL PROTEIN 6.5 G/DL (5.7-8.2)
== END ==
LOC: M PLALAB 17:02
PROVIDERS: ATTEND Specialist
DX: N83.9 Noninflammatory disorder of ovary, fallopian tube and broad ligament, unspecified (principal)

== ENCOUNTER → 2024-05-01 | Outpatient (REF) | payer OTHER ==
[2024-05-01 18:30] LABS: BASO % 0.9 % (0.0-1.0); EOS # 0.2 10^3/uL (0.0-0.5); EOS % 5.4 % (0.0-3.0); HEMATOCRIT 25.4 % (36.0-47.0); HEMOGLOBIN 7.9 g/dl (12.0-15.5); MEAN CORPUSCULAR HEMOGLOBIN 29.7 pg (27.0-33.0); MEAN CORPUSCULAR HGB CONC 31.1 g/dl (32.0-36.5); MEAN CORPUSCULAR VOLUME 95.5 fl (80.0-96.0); MONO # 0.4 10^3/uL (0.0-0.8); MONO % 8.6 % (2.0-8.0); NEUTROPHILS # 2.7 10^3/uL (1.5-8.5); NEUTROPHILS % 61.4 % (36.0-66.0); PLATELET COUNT, AUTOMATED 399 10^3/uL (150-450); RED BLOOD COUNT 2.66 10^6/uL (4.00-5.40); WHITE BLOOD COUNT 4.4 10^3/uL (4.0-10.0)
[2024-05-01 18:57] LABS: ALBUMIN 3.1 G/DL (3.2-5.2); ALKALINE PHOSPHATASE 96 U/L (35-104); ALT/SGPT 34 U/L (7.0-40); AST/SGOT 22 U/L (<34); BILIRUBIN,TOTAL 0.2 MG/DL (0.3-1.2); BLOOD UREA NITROGEN 25 MG/DL (9-23); CALCIUM LEVEL 8.8 MG/DL (8.5-10.1); CARBON DIOXIDE LEVEL 28 MMOL/L (20-31); CHLORIDE LEVEL 105 MMOL/L (98-107); CREATININE FOR GFR 1.01 MG/DL (0.55-1.30); GLOMERULAR FILTRATION RATE > 60.0 (>51); GLUCOSE, FASTING 83 MG/DL (60-100); MAGNESIUM LEVEL 1.9 MG/DL (1.8-2.4); POTASSIUM SERUM 4.4 MMOL/L (3.5-5.1); SODIUM LEVEL 140 MMOL/L (136-145); TOTAL PROTEIN 6.4 G/DL (5.7-8.2)
== END ==
LOC: M LABDRAWP 17:21
PROVIDERS: ATTEND Specialist
DX: C56.1 Malignant neoplasm of right ovary (principal)

== ENCOUNTER → 2024-05-08 | Outpatient (CLI) | payer OTHER ==
[2024-05-08 18:40] LABS: BASO % 0.9 % (0.0-1.0); EOS # 0.2 10^3/uL (0.0-0.5); EOS % 5.3 % (0.0-3.0); HEMATOCRIT 26.2 % (36.0-47.0); HEMOGLOBIN 8.2 g/dl (12.0-15.5); LYMPH # 0.9 10^3/uL (1.5-5.0); LYMPH % 20.4 % (24.0-44.0); MEAN CORPUSCULAR HEMOGLOBIN 29.9 pg (27.0-33.0); MEAN CORPUSCULAR HGB CONC 31.3 g/dl (32.0-36.5); MEAN CORPUSCULAR VOLUME 95.6 fl (80.0-96.0); MONO # 0.3 10^3/uL (0.0-0.8); MONO % 7.7 % (2.0-8.0); NEUTROPHILS # 2.8 10^3/uL (1.5-8.5); NEUTROPHILS % 64.8 % (36.0-66.0); PLATELET COUNT, AUTOMATED 380 10^3/uL (150-450); RED BLOOD COUNT 2.74 10^6/uL (4.00-5.40); WHITE BLOOD COUNT 4.3 10^3/uL (4.0-10.0)
[2024-05-08 19:15] LABS: ALBUMIN 3.2 G/DL (3.2-5.2); ALKALINE PHOSPHATASE 118 U/L (35-104); ALT/SGPT 108 U/L (7.0-40); AST/SGOT 79 U/L (<34); BILIRUBIN,TOTAL 0.3 MG/DL (0.3-1.2); BLOOD UREA NITROGEN 24 MG/DL (9-23); CALCIUM LEVEL 9.3 MG/DL (8.5-10.1); CARBON DIOXIDE LEVEL 27 MMOL/L (20-31); CHLORIDE LEVEL 105 MMOL/L (98-107); CREATININE FOR GFR 0.99 MG/DL (0.55-1.30); GLOMERULAR FILTRATION RATE > 60.0 (>51); GLUCOSE, FASTING 81 MG/DL (60-100); MAGNESIUM LEVEL 1.9 MG/DL (1.8-2.4); POTASSIUM SERUM 4.3 MMOL/L (3.5-5.1); SODIUM LEVEL 138 MMOL/L (136-145)
== END ==
LOC: M PLALAB 16:33
PROVIDERS: ATTEND Specialist
DX: C56.9 Malignant neoplasm of unspecified ovary (principal)

== ENCOUNTER 2024-05-19 10:01 | Inpatient (IN) | payer OTHER ==
[~2024-05-19] VITALS: Ht 167.6 cm; Wt 69.9 kg
[2024-05-19] VITALS (8 sets, daily range): BP systolic 76–96; BP diastolic 44–60; TEMP 96.6–98.2; O2SAT 92–97
[~2024-05-19 10:01] MED LIST changes: -ALPR0.5T3; +ALPR0.5T3 PO; -ENTR1TAB4; +ENTR1TAB4 PO; -FLUO40CA; +FLUO40CA PO
[2024-05-19] MEDS: [UNRECOGNIZED DRUG - OTHER] IV ONE (10:55)
[2024-05-19] MEDS: NS 0.9% IV ONE (10:55)
[2024-05-19 10:58] LABS: VENOUS BASE EXCESS -8.4 (-2.0-2.0); VENOUS HCO3 16.2 MMOL/L (23.0-27.0); VENOUS O2 SATURATION 89.8 % (60.0-80.0); VENOUS PARTIAL PRESSURE CO2 29.8 mmHg (38.0-50.0); VENOUS PARTIAL PRESSURE O2 64.2 mmHg (30.0-50.0); VENOUS PH 7.352 UNITS (7.330-7.430); VENOUS STANDARD HCO3 17.4 MMOL/L; VENOUS TOTAL CO2 17.1 MMOL/L (24.0-28.0)
[2024-05-19 11:09] LABS: HEMATOCRIT 22.3 % (36.0-47.0); HEMOGLOBIN 7.5 g/dl (12.0-15.5); MEAN CORPUSCULAR HEMOGLOBIN 29.8 pg (27.0-33.0); MEAN CORPUSCULAR HGB CONC 33.6 g/dl (32.0-36.5); MEAN CORPUSCULAR VOLUME 88.5 fl (80.0-96.0); PLATELET COUNT, AUTOMATED 292 10^3/uL (150-450); RED BLOOD COUNT 2.52 10^6/uL (4.00-5.40); WHITE BLOOD COUNT 9.6 10^3/uL (4.0-10.0)
[2024-05-19 11:16] LABS: INR 1.56; PARTIAL THROMBOPLASTIN TIME 36.4 SECONDS (24.8-34.2); PROTHROMBIN TIME 18.9 SECONDS (12.5-14.5)
[2024-05-19] MEDS: cefTRIAXone SOD 2 GM in DEXTROSE 5% (D5W) ADV/MINI-BAG 50 ML IV ONE (11:19)
[2024-05-19] MEDS: fentaNYL 100 MCG/2 ML INJECTION IV ONE (11:20)
[2024-05-19 11:27] LABS: AMYLASE 34 U/L (30-118)
[2024-05-19 11:28] LABS: ALKALINE PHOSPHATASE 91 U/L (35-104); ALT/SGPT 22 U/L (7.0-40); AST/SGOT 26 U/L (<34); BILIRUBIN,TOTAL 1.4 MG/DL (0.3-1.2); BLOOD UREA NITROGEN 112 MG/DL (9-23); CALCIUM LEVEL 8.5 MG/DL (8.5-10.1); CARBON DIOXIDE LEVEL 17 MMOL/L (20-31); CHLORIDE LEVEL 95 MMOL/L (98-107); CREATININE FOR GFR 3.21 MG/DL (0.55-1.30); GLUCOSE, FASTING 102 MG/DL (60-100); LYMPHOCYTES 3 % (16-44); METAMYELOCYTES 2 % (0-0); MONOCYTES 5 % (0-5); NEUTROPHILS 56 % (28-66); POTASSIUM SERUM 3.9 MMOL/L (3.5-5.1); SODIUM LEVEL 129 MMOL/L (136-145); TOTAL PROTEIN 5.7 G/DL (5.7-8.2)
[2024-05-19 11:29] LABS: PLATELET CLUMPS SMALL AMT; PLATELET ESTIMATE NORMAL (NORMAL)
[2024-05-19 11:31] LABS: ANISOCYTOSIS 1+; DOHLE BODIES 1+; TOXIC GRANULATION 1+; TOXIC VACUOLATION 1+
[2024-05-19 11:32] LABS: OVALOCYTES 1+
[2024-05-19 11:38] LABS: PROCALCITONIN >50.00 ng/ml
[2024-05-19] MEDS ORDERED: PIPERACILLIN/TAZOBACTAM SOD 3.375 GM in DEXTROSE 5% (D5W) ADV/MINI-BAG 50 ML IV SCH (12:50)
[2024-05-19] MEDS ORDERED: HOME MED LIST COMPLETE! XX SCH (12:50)
[2024-05-19 13:05] LABS: AMORPHOUS SEDIMENT SMALL (NEGATIVE); APPEARANCE, URINE CLOUDY (CLEAR); BACTERIA, URINE AUTO 1+ (NEGATIVE); BILIRUBIN, URINE AUTO NEGATIVE (NEGATIVE); BLOOD, URINE BLOOD 1+ (NEGATIVE); COLOR, URINE AMBER (YELLOW); GLUCOSE, URINE (UA) AUTO NEGATIVE (NEGATIVE); GRANULAR CAST, URINE AUTO 40 /LPF; KETONE, URINE AUTO NEGATIVE (NEGATIVE); LEUKOCYTE ESTERASE, URINE AUTO NEGATIVE (NEGATIVE); MUCUS, URINE SMALL (NEGATIVE); NITRITE, URINE AUTO NEGATIVE (NEGATIVE); PROTEIN, URINE AUTO 1+ mg/dL (NEGATIVE); RBC, URINE AUTO 2 /HPF (0-3); SPECIFIC GRAVITY URINE AUTO 1.015 (1.002-1.035); SQUAMOUS EPITHELIAL CELL UR AU 1 /HPF (0-6); WBC, URINE AUTO 46 /HPF (0-3)
[2024-05-19 13:33] LABS: IRON (FE) 6 UG/DL (50-170); PERCENT SATURATION 3.4 % (13.2-45.0); TOTAL IRON BINDING CAPACITY 176 UG/DL (250-425)
[2024-05-19 13:35] LABS: SODIUM,RANDOM URINE 14 MMOL/L
[2024-05-19 13:45] LABS: CREATININE,RANDOM URINE 221.2 MG/DL
[2024-05-19 13:51] LABS: CHLORIDE,RANDOM URINE < 20 MMOL/L
[2024-05-19 14:12] LABS: VITAMIN B12 LEVEL > 2000 PG/ML (211-911)
[2024-05-19] MEDS: PIPERACILLIN/TAZOBACTAM SOD 2.25 GM in DEXTROSE 5% (D5W) ADV/MINI-BAG 50 ML IV SCH (14:28)
[2024-05-19] MEDS: HEPARIN SOD (PORCINE) 5000UNITS/ML 1ML VIAL/SYRINGE SC SCH (14:28)
[2024-05-19 14:33] LABS: FERRITIN 2467.7 NG/ML (7.3-270.7)
[2024-05-19] MEDS: MIDODRINE 5 MG TAB PO SCH (15:12)
[2024-05-19] MEDS: LR 1,000 ML IV ONE (15:13)
[2024-05-19] MEDS: DOXYCYCLINE HYCLATE 100 MG in DEXTROSE 5% (D5W) MINI-BAG PLU 100 ML IV SCH (15:13)
[2024-05-19 15:41] LABS: HEMATOCRIT 21.3 % (36.0-47.0); MEAN CORPUSCULAR HGB CONC 32.9 g/dl (32.0-36.5); MEAN CORPUSCULAR VOLUME 91.4 fl (80.0-96.0); PLATELET COUNT, AUTOMATED 258 10^3/uL (150-450); RED BLOOD COUNT 2.33 10^6/uL (4.00-5.40)
[2024-05-19 15:59] LABS: CALCIUM LEVEL 7.8 MG/DL (8.5-10.1); CK-MB VALUE MASS 1.4 NG/ML (<3.6); CREATININE FOR GFR 3.01 MG/DL (0.55-1.30); GLOMERULAR FILTRATION RATE 17.2 (>51); POTASSIUM SERUM 3.8 MMOL/L (3.5-5.1)
[2024-05-19 16:01] LABS: MB/CK RELATIVE INDEX 2.45 (< OR =4)
[2024-05-19 16:04] LABS: ATYPICAL LYMPH 1 % (0-5); LYMPHOCYTES 6 % (16-44); MONOCYTES 4 % (0-5); NEUTROPHILS 76 % (28-66)
[2024-05-19 16:05] LABS: ANISOCYTOSIS 1+
[2024-05-19 16:06] LABS: HYPOCHROMASIA 1+; TOXIC VACUOLATION 3+
[2024-05-19 16:19] LABS: PLATELET ESTIMATE NORMAL (NORMAL)
[2024-05-19] MEDS ORDERED: CISATRACURIUM 200 MG in NS 480 ML IV SCH (16:20)
[2024-05-19] MEDS ORDERED: MIDAZOLAM 100MG/100ML-0.9%NACL 100 MG in IV 1 EA IV SCH (16:20)
[2024-05-19] MEDS ORDERED: fentaNYL CITRATE/NaCl 1,000 MCG in IV 1 EA IV SCH (16:20)
[2024-05-19] MEDS ORDERED: FENTANYL DRIP LOCK BOX KEY 1 EACH XX PRN (16:20)
[2024-05-19] MEDS: HYDROCORTISONE 100MG/2ML VIAL IV ONE (16:21)
[2024-05-19] MEDS: SODIUM BICARBONATE 75 MEQ in NS 0.45% 1,000 ML IV SCH (16:21)
[2024-05-19 16:27] LABS: VENOUS BASE EXCESS -8.6 (-2.0-2.0); VENOUS HCO3 17.6 MMOL/L (23.0-27.0); VENOUS O2 SATURATION 74.2 % (60.0-80.0); VENOUS PARTIAL PRESSURE CO2 39.1 mmHg (38.0-50.0); VENOUS PARTIAL PRESSURE O2 45.3 mmHg (30.0-50.0); VENOUS PH 7.271 UNITS (7.330-7.430); VENOUS STANDARD HCO3 17.1 MMOL/L; VENOUS TOTAL CO2 18.8 MMOL/L (24.0-28.0)
[2024-05-19] MEDS ORDERED: VANCOMYCIN/WATER FOR INJ 750 MG in IV 1 EA IV SCH (17:00)
[2024-05-19 17:06] LABS: CK-MB VALUE MASS 1.7 NG/ML (<3.6)
[2024-05-19 17:07] LABS: MB/CK RELATIVE INDEX 3.46 (< OR =4)
[2024-05-19] MEDS: SODIUM BICARBONATE 150 MEQ in D5W 1,000 ML IV SCH (18:53)
[2024-05-19] MEDS: VANCOMYCIN 1,000 MG/200 ML IV BAG *LOAD IV ONE (20:41)
[2024-05-19] MEDS: ALPRAZolam 0.5 MG TAB PO SCH (20:41)
[2024-05-19] MEDS: FLUoxetine 20MG CAP PO SCH (20:42)
[2024-05-19] MEDS: ASPIRIN 81MG ENTERIC TABLET PO SCH (20:42)
[2024-05-19] MEDS: ACETAMINOPHEN 325 MG TAB PO PRN (20:56)
[2024-05-19 21:35] LABS: VENOUS BASE EXCESS -8.9 (-2.0-2.0); VENOUS HCO3 15.5 MMOL/L (23.0-27.0); VENOUS O2 SATURATION 98.8 % (60.0-80.0); VENOUS PARTIAL PRESSURE CO2 28.6 mmHg (38.0-50.0); VENOUS PARTIAL PRESSURE O2 154.9 mmHg (30.0-50.0); VENOUS PH 7.352 UNITS (7.330-7.430); VENOUS STANDARD HCO3 17.2 MMOL/L; VENOUS TOTAL CO2 16.4 MMOL/L (24.0-28.0)
[2024-05-19 21:37] LABS: BASO # 0.1 10^3/uL (0.0-0.2); BASO % 0.5 % (0.0-1.0); EOS % 0.2 % (0.0-3.0); HEMATOCRIT 25.4 % (36.0-47.0); HEMOGLOBIN 8.6 g/dl (12.0-15.5); LYMPH # 0.2 10^3/uL (1.5-5.0); LYMPH % 1.8 % (24.0-44.0); MEAN CORPUSCULAR HEMOGLOBIN 29.9 pg (27.0-33.0); MEAN CORPUSCULAR HGB CONC 33.9 g/dl (32.0-36.5); MEAN CORPUSCULAR VOLUME 88.2 fl (80.0-96.0); MONO # 0.3 10^3/uL (0.0-0.8); MONO % 2.5 % (2.0-8.0); NEUTROPHILS # 11.1 10^3/uL (1.5-8.5); NEUTROPHILS % 93.7 % (36.0-66.0); PLATELET COUNT, AUTOMATED 260 10^3/uL (150-450); RED BLOOD COUNT 2.88 10^6/uL (4.00-5.40); WHITE BLOOD COUNT 11.8 10^3/uL (4.0-10.0)
[2024-05-19 22:04] LABS: CREATININE FOR GFR 2.72 MG/DL (0.55-1.30); GLOMERULAR FILTRATION RATE 19.3 (>51); POTASSIUM SERUM 3.7 MMOL/L (3.5-5.1)
[2024-05-20] VITALS (8 sets, daily range): BP systolic 88–110; BP diastolic 58–67; TEMP 97.1–98; O2SAT 93–96
[2024-05-20 07:04] LABS: BASO # 0.1 10^3/uL (0.0-0.2); BASO % 0.8 % (0.0-1.0); EOS % 0.1 % (0.0-3.0); HEMATOCRIT 23.7 % (36.0-47.0); HEMOGLOBIN 8.2 g/dl (12.0-15.5); LYMPH # 0.2 10^3/uL (1.5-5.0); LYMPH % 3.1 % (24.0-44.0); MEAN CORPUSCULAR HEMOGLOBIN 29.3 pg (27.0-33.0); MEAN CORPUSCULAR HGB CONC 34.6 g/dl (32.0-36.5); MEAN CORPUSCULAR VOLUME 84.6 fl (80.0-96.0); MONO # 0.3 10^3/uL (0.0-0.8); MONO % 3.7 % (2.0-8.0); NEUTROPHILS # 6.9 10^3/uL (1.5-8.5); NEUTROPHILS % 88.5 % (36.0-66.0); PLATELET COUNT, AUTOMATED 215 10^3/uL (150-450); WHITE BLOOD COUNT 7.8 10^3/uL (4.0-10.0)
[2024-05-20 07:39] LABS: ALBUMIN 1.7 G/DL (3.2-5.2); BILIRUBIN,TOTAL 1.3 MG/DL (0.3-1.2); CREATININE FOR GFR 2.6 MG/DL (0.55-1.30); GLOMERULAR FILTRATION RATE 20.3 (>51)
[2024-05-20 07:51] LABS: MAGNESIUM LEVEL 2.2 MG/DL (1.8-2.4); POTASSIUM SERUM 3.1 MMOL/L (3.5-5.1); TOTAL PROTEIN 4.7 G/DL (5.7-8.2)
[2024-05-20] MEDS ORDERED: VANCOMYCIN HCL 500 MG in DEXTROSE 5% (D5W) MINI-BAG PLU 100 ML IV SCH (08:00)
[2024-05-20] MEDS: POTASSIUM CHLORIDE 10MEQ SR TABLET PO ONE (09:05)
[2024-05-20] MEDS: KCL 20MEQ in NS 1000ML 1,000 ML IV SCH (12:53)
[2024-05-21] VITALS (7 sets, daily range): BP systolic 93–103; BP diastolic 54–66; TEMP 97–98.2; O2SAT 92–96
[2024-05-21] MEDS: LIDOCAINE 5% (LIDODERM) PATCH TD ONE (04:20)
[2024-05-21 06:21] LABS: HEMATOCRIT 26.1 % (36.0-47.0); HEMOGLOBIN 8.9 g/dl (12.0-15.5); MEAN CORPUSCULAR HEMOGLOBIN 29.3 pg (27.0-33.0); MEAN CORPUSCULAR HGB CONC 34.1 g/dl (32.0-36.5); MEAN CORPUSCULAR VOLUME 85.9 fl (80.0-96.0); PLATELET COUNT, AUTOMATED 201 10^3/uL (150-450); RED BLOOD COUNT 3.04 10^6/uL (4.00-5.40); WHITE BLOOD COUNT 8.9 10^3/uL (4.0-10.0)
[2024-05-21 06:53] LABS: ALBUMIN 1.7 G/DL (3.2-5.2); BILIRUBIN,TOTAL 0.9 MG/DL (0.3-1.2); CALCIUM LEVEL 8.5 MG/DL (8.5-10.1); CREATININE FOR GFR 2.34 MG/DL (0.55-1.30); MAGNESIUM LEVEL 2.2 MG/DL (1.8-2.4); POTASSIUM SERUM 3.4 MMOL/L (3.5-5.1); TOTAL PROTEIN 4.7 G/DL (5.7-8.2)
[2024-05-21 07:35] LABS: EOSINOPHILS 1 % (0-3); LYMPHOCYTES 9 % (16-44); MONOCYTES 1 % (0-5); NEUTROPHILS 83 % (28-66)
[2024-05-21 07:36] LABS: TOXIC GRANULATION 1+
[2024-05-21 07:37] LABS: MICROCYTOSIS 1+; PLATELET ESTIMATE NORMAL (NORMAL)
[2024-05-21] MEDS: PERCOCET 5MG/325MG TAB PO PRN (09:18)
[2024-05-21] MEDS: MORPHINE 2 MG/ML 1ML VIAL IV PRN (11:10)
[2024-05-21] MEDS: MORPHINE 2 MG/ML 1ML VIAL IV ONE (12:30)
[2024-05-21] MEDS: ACETAMINOPHEN *IV* 1,000 MG in IV 1 EA IV ONE (14:34)
[2024-05-21] MEDS: MIDODRINE 5 MG TAB PO SCH (16:35)
[2024-05-21] MEDS: oxyCODONE 5MG TAB PO PRN (17:20)
[2024-05-21] MEDS: MORPHINE SULFATE TAB EXT REL 15 MG PO SCH (20:30)
[2024-05-21] MEDS: ACETAMINOPHEN 500 MG TAB PO SCH (20:31)
[2024-05-22 04:33] VITALS: BP 101/71; TEMP 98.2; O2SAT 93
[2024-05-22 06:47] LABS: HEMATOCRIT 26.4 % (36.0-47.0); HEMOGLOBIN 8.9 g/dl (12.0-15.5); MEAN CORPUSCULAR HEMOGLOBIN 29.9 pg (27.0-33.0); MEAN CORPUSCULAR HGB CONC 33.7 g/dl (32.0-36.5); MEAN CORPUSCULAR VOLUME 88.6 fl (80.0-96.0); PLATELET COUNT, AUTOMATED 176 10^3/uL (150-450); RED BLOOD COUNT 2.98 10^6/uL (4.00-5.40); WHITE BLOOD COUNT 13.6 10^3/uL (4.0-10.0)
[2024-05-22 07:14] LABS: ALBUMIN 1.6 G/DL (3.2-5.2); BILIRUBIN,TOTAL 1.2 MG/DL (0.3-1.2); CALCIUM LEVEL 8.5 MG/DL (8.5-10.1); CREATININE FOR GFR 1.75 MG/DL (0.55-1.30); GLOMERULAR FILTRATION RATE 32.1 (>51); MAGNESIUM LEVEL 2.2 MG/DL (1.8-2.4); POTASSIUM SERUM 3.8 MMOL/L (3.5-5.1); TOTAL PROTEIN 4.8 G/DL (5.7-8.2)
[2024-05-22 07:51] LABS: EOSINOPHILS 1 % (0-3); LYMPHOCYTES 8 % (16-44); MONOCYTES 3 % (0-5); MYELOCYTES 1 % (0-0); NEUTROPHILS 80 % (28-66)
[2024-05-22 07:52] LABS: ANISOCYTOSIS 1+; PLATELET ESTIMATE NORMAL (NORMAL)
[2024-05-22 07:57] VITALS: BP 102/68; TEMP 98.3; O2SAT 93
[2024-05-22 09:39] LABS: C REACTIVE PROTEIN QUANTITATIV 13.96 MG/DL (<1.0)
[2024-05-22 15:40] VITALS: BP 107/65; TEMP 98.5; O2SAT 99
[2024-05-22 19:43] VITALS: BP 101/62; TEMP 98.1; O2SAT 97
[2024-05-23 04:41] VITALS: BP 102/62; TEMP 98.5; O2SAT 92
[2024-05-23 05:03] LABS: BASO % 0.2 % (0.0-1.0); EOS # 0.1 10^3/uL (0.0-0.5); EOS % 0.9 % (0.0-3.0); HEMATOCRIT 26.3 % (36.0-47.0); HEMOGLOBIN 8.7 g/dl (12.0-15.5); LYMPH # 0.7 10^3/uL (1.5-5.0); LYMPH % 5.3 % (24.0-44.0); MEAN CORPUSCULAR HGB CONC 33.1 g/dl (32.0-36.5); MEAN CORPUSCULAR VOLUME 90.7 fl (80.0-96.0); MONO # 0.4 10^3/uL (0.0-0.8); NEUTROPHILS # 11.4 10^3/uL (1.5-8.5); NEUTROPHILS % 83.9 % (36.0-66.0); PLATELET COUNT, AUTOMATED 183 10^3/uL (150-450); WHITE BLOOD COUNT 13.5 10^3/uL (4.0-10.0)
[2024-05-23 05:28] LABS: ALBUMIN 1.7 G/DL (3.2-5.2); ALKALINE PHOSPHATASE 71 U/L (35-104); ALT/SGPT 9 U/L (7.0-40); AST/SGOT < 8 U/L (<34); BILIRUBIN,TOTAL 1.2 MG/DL (0.3-1.2); BLOOD UREA NITROGEN 73 MG/DL (9-23); CALCIUM LEVEL 8.7 MG/DL (8.5-10.1); CARBON DIOXIDE LEVEL 18 MMOL/L (20-31); CHLORIDE LEVEL 109 MMOL/L (98-107); CREATININE FOR GFR 1.44 MG/DL (0.55-1.30); GLOMERULAR FILTRATION RATE 40.2 (>51); GLUCOSE, FASTING 96 MG/DL (60-100); MAGNESIUM LEVEL 1.8 MG/DL (1.8-2.4); POTASSIUM SERUM 4.1 MMOL/L (3.5-5.1); SODIUM LEVEL 139 MMOL/L (136-145)
[2024-05-23 07:37] VITALS: BP 106/62; TEMP 98.4; O2SAT 92
[2024-05-23 13:11] VITALS: BP 111/60; TEMP 98.5; O2SAT 93
[2024-05-23 17:24] VITALS: BP 112/74
[2024-05-23] MEDS: PIPERACILLIN/TAZOBACTAM SOD 3.375 GM in DEXTROSE 5% (D5W) ADV/MINI-BAG 50 ML IV SCH (17:24)
[2024-05-23 20:02] VITALS: BP 109/70; TEMP 97.6; O2SAT 93
[2024-05-24 03:35] VITALS: BP 109/69; TEMP 98.3; O2SAT 95
[2024-05-24 04:21] LABS: HEMATOCRIT 25.9 % (36.0-47.0); HEMOGLOBIN 8.1 g/dl (12.0-15.5); MEAN CORPUSCULAR HEMOGLOBIN 29.1 pg (27.0-33.0); MEAN CORPUSCULAR HGB CONC 31.3 g/dl (32.0-36.5); MEAN CORPUSCULAR VOLUME 93.2 fl (80.0-96.0); PLATELET COUNT, AUTOMATED 211 10^3/uL (150-450); RED BLOOD COUNT 2.78 10^6/uL (4.00-5.40); WHITE BLOOD COUNT 12.3 10^3/uL (4.0-10.0)
[2024-05-24 04:33] LABS: ALBUMIN 1.7 G/DL (3.2-5.2); ALKALINE PHOSPHATASE 78 U/L (35-104); ALT/SGPT < 9 U/L (7.0-40); AST/SGOT < 8 U/L (<34); BLOOD UREA NITROGEN 54 MG/DL (9-23); CALCIUM LEVEL 8.8 MG/DL (8.5-10.1); CARBON DIOXIDE LEVEL 17 MMOL/L (20-31); CHLORIDE LEVEL 111 MMOL/L (98-107); GLOMERULAR FILTRATION RATE 45.3 (>51); GLUCOSE, FASTING 98 MG/DL (60-100); MAGNESIUM LEVEL 1.8 MG/DL (1.8-2.4); POTASSIUM SERUM 4.7 MMOL/L (3.5-5.1); SODIUM LEVEL 141 MMOL/L (136-145); TOTAL PROTEIN 5.1 G/DL (5.7-8.2)
[2024-05-24 05:07] LABS: ATYPICAL LYMPH 1 % (0-5); LYMPHOCYTES 10 % (16-44); MONOCYTES 1 % (0-5); NEUTROPHILS 83 % (28-66); PLATELET ESTIMATE NORMAL (NORMAL)
[2024-05-24 05:08] LABS: ANISOCYTOSIS 1+
[2024-05-24 08:00] VITALS: BP 107/67; TEMP 99.8; O2SAT 98
[2024-05-24] MEDS: SENNA 8.6 MG TAB (SENOKOT) PO PRN (08:25)
[2024-05-24] MEDS: SODIUM BICARBONATE 75 MEQ in NS 0.45% 1,000 ML IV SCH (10:41)
[2024-05-24 12:00] VITALS: BP 119/68; TEMP 99.8; O2SAT 95
[2024-05-24] MEDS: BISACODYL 10MG SUPP PR SCH (12:44)
[2024-05-24 15:38] VITALS: BP 110/68; TEMP 98.5; O2SAT 94
[2024-05-24] MEDS: cefTRIAXone SOD 1 GM in DEXTROSE 5% (D5W) ADV/MINI-BAG 50 ML IV SCH (18:45)
[2024-05-24 21:23] VITALS: BP 120/70; TEMP 99.6; O2SAT 94
[2024-05-24] MEDS: SENOKOT S TAB PO SCH (21:30)
[2024-05-25] VITALS (7 sets, daily range): BP systolic 107–125; BP diastolic 70–75; TEMP 97.1–98.6; O2SAT 92–96
[2024-05-25 06:01] LABS: BASO % 0.2 % (0.0-1.0); EOS # 0.1 10^3/uL (0.0-0.5); EOS % 0.6 % (0.0-3.0); HEMATOCRIT 24.1 % (36.0-47.0); HEMOGLOBIN 7.7 g/dl (12.0-15.5); LYMPH # 0.6 10^3/uL (1.5-5.0); LYMPH % 3.9 % (24.0-44.0); MEAN CORPUSCULAR HEMOGLOBIN 29.4 pg (27.0-33.0); MONO # 0.4 10^3/uL (0.0-0.8); MONO % 2.6 % (2.0-8.0); NEUTROPHILS # 13.4 10^3/uL (1.5-8.5); NEUTROPHILS % 90.9 % (36.0-66.0); PLATELET COUNT, AUTOMATED 247 10^3/uL (150-450); RED BLOOD COUNT 2.62 10^6/uL (4.00-5.40); WHITE BLOOD COUNT 14.8 10^3/uL (4.0-10.0)
[2024-05-25 06:27] LABS: ALBUMIN 1.7 G/DL (3.2-5.2); ALKALINE PHOSPHATASE 92 U/L (35-104); ALT/SGPT 9 U/L (7.0-40); AST/SGOT 8 U/L (<34); BILIRUBIN,TOTAL 0.8 MG/DL (0.3-1.2); BLOOD UREA NITROGEN 37 MG/DL (9-23); CALCIUM LEVEL 8.6 MG/DL (8.5-10.1); CARBON DIOXIDE LEVEL 20 MMOL/L (20-31); CHLORIDE LEVEL 110 MMOL/L (98-107); CREATININE FOR GFR 1.01 MG/DL (0.55-1.30); GLOMERULAR FILTRATION RATE > 60.0 (>51); GLUCOSE, FASTING 105 MG/DL (60-100); MAGNESIUM LEVEL 1.6 MG/DL (1.8-2.4); SODIUM LEVEL 139 MMOL/L (136-145); TOTAL PROTEIN 5.4 G/DL (5.7-8.2)
[2024-05-25] MEDS: MAGNESIUM OXIDE 400MG TAB (MAG-OX) PO SCH (09:14)
[2024-05-25 15:11] LABS: HEMATOCRIT 27.9 % (36.0-47.0)
[2024-05-25] MEDS: MAG SULF 1GM/100ML (MAG RUN) 1 GM in IV 1 EA IV SCH (15:23)
[2024-05-25] MEDS: SODIUM BICARBONATE 325 MG TAB PO SCH (22:08)
[2024-05-25] MEDS: PROMETHAZINE 25MG/ML 1ML VIAL IV PRN (22:10)
[2024-05-26 04:26] VITALS: BP 104/69; TEMP 98.3; O2SAT 93
[2024-05-26 06:43] LABS: BASO % 0.2 % (0.0-1.0); EOS # 0.1 10^3/uL (0.0-0.5); EOS % 0.6 % (0.0-3.0); HEMATOCRIT 27.4 % (36.0-47.0); HEMOGLOBIN 8.9 g/dl (12.0-15.5); LYMPH # 0.7 10^3/uL (1.5-5.0); LYMPH % 4.1 % (24.0-44.0); MEAN CORPUSCULAR HGB CONC 32.5 g/dl (32.0-36.5); MEAN CORPUSCULAR VOLUME 89.3 fl (80.0-96.0); MONO # 0.5 10^3/uL (0.0-0.8); MONO % 2.9 % (2.0-8.0); NEUTROPHILS # 15.2 10^3/uL (1.5-8.5); NEUTROPHILS % 91.1 % (36.0-66.0); PLATELET COUNT, AUTOMATED 268 10^3/uL (150-450); RED BLOOD COUNT 3.07 10^6/uL (4.00-5.40); WHITE BLOOD COUNT 16.7 10^3/uL (4.0-10.0)
[2024-05-26 07:34] VITALS: BP 111/71; TEMP 98; O2SAT 94
[2024-05-26 16:00] VITALS: BP 112/64; TEMP 98.8; O2SAT 94
[2024-05-26 18:15] VITALS: BP 113/79; TEMP 100; O2SAT 98
[2024-05-26 20:18] VITALS: BP 133/91; TEMP 99.5; O2SAT 95
[2024-05-27] VITALS (7 sets, daily range): BP systolic 105–127; BP diastolic 68–86; TEMP 99.9–102.4; O2SAT 95–96
[2024-05-27 05:59] LABS: HEMATOCRIT 28.4 % (36.0-47.0); HEMOGLOBIN 9.3 g/dl (12.0-15.5); MEAN CORPUSCULAR HEMOGLOBIN 29.6 pg (27.0-33.0); MEAN CORPUSCULAR HGB CONC 32.7 g/dl (32.0-36.5); MEAN CORPUSCULAR VOLUME 90.4 fl (80.0-96.0); PLATELET COUNT, AUTOMATED 341 10^3/uL (150-450); RED BLOOD COUNT 3.14 10^6/uL (4.00-5.40); WHITE BLOOD COUNT 18.3 10^3/uL (4.0-10.0)
[2024-05-27 06:24] LABS: LYMPHOCYTES 2 % (16-44); MONOCYTES 3 % (0-5); NEUTROPHILS 90 % (28-66)
[2024-05-27 06:25] LABS: ANISOCYTOSIS 1+; HYPOCHROMASIA 2+; OVALOCYTES 1+; POIKILOCYTOSIS 1+
[2024-05-27 06:26] LABS: BURR CELLS 1+; PLATELET ESTIMATE NORMAL (NORMAL)
[2024-05-27 06:39] LABS: ALBUMIN 1.8 G/DL (3.2-5.2); ALKALINE PHOSPHATASE 108 U/L (35-104); ALT/SGPT < 9 U/L (7.0-40); AST/SGOT 10 U/L (<34); BILIRUBIN,TOTAL 0.8 MG/DL (0.3-1.2); BLOOD UREA NITROGEN 34 MG/DL (9-23); CALCIUM LEVEL 8.8 MG/DL (8.5-10.1); CARBON DIOXIDE LEVEL 22 MMOL/L (20-31); CHLORIDE LEVEL 106 MMOL/L (98-107); CREATININE FOR GFR 1.08 MG/DL (0.55-1.30); GLOMERULAR FILTRATION RATE 56.1 (>51); GLUCOSE, FASTING 93 MG/DL (60-100); MAGNESIUM LEVEL 2.1 MG/DL (1.8-2.4); POTASSIUM SERUM 4.3 MMOL/L (3.5-5.1); PROCALCITONIN >50.00 ng/ml; SODIUM LEVEL 138 MMOL/L (136-145)
[2024-05-27] MEDS ORDERED: MIDO5TA PO (12:40)
[2024-05-27] MEDS ORDERED: NYST-38 SS (12:40)
[2024-05-27] MEDS ORDERED: MORP15TASA PO (12:40)
[2024-05-27] MEDS ORDERED: LEVO1TAB39 PO (12:40)
[2024-05-27] MEDS ORDERED: BISA10SU PR (12:40)
[2024-05-27] MEDS ORDERED: MAGN400T2 PO (12:40)
[2024-05-27] MEDS ORDERED: PROBCAP14 PO (13:24)
== END 2024-05-27 15:40 | disposition hospice, home (50) | DRG 872 ==
LOC: M ED 10:01 → M ED INP 12:46 → M PCU 14:49 → M MS5PR 05-26 17:56
PROVIDERS: ADMIT Internal Medicine; ATTEND Student in an Organized Health Care Education/Training Program
PROC: 30233J1 Transfusion of Nonautologous Serum Albumin into Peripheral Vein, Percutaneous Approach (ICD-10-PCS; 2024-05-19)
PROC: B246ZZZ Ultrasonography of Right and Left Heart (ICD-10-PCS; principal; 2024-05-20)
PROC: 30233N1 Transfusion of Nonautologous Red Blood Cells into Peripheral Vein, Percutaneous Approach (ICD-10-PCS; 2024-05-25)
DX: A41.51 Sepsis due to Escherichia coli [E. coli] (principal); N17.9 Acute kidney failure, unspecified; I50.22 Chronic systolic (congestive) heart failure; I13.0 Hypertensive heart and chronic kidney disease with heart failure and stage 1 through stage 4 chronic kidney disease, or unspecified chronic kidney disease; C56.1 Malignant neoplasm of right ovary; E87.20 Acidosis, unspecified; R18.0 Malignant ascites; E87.1 Hypo-osmolality and hyponatremia; C78.6 Secondary malignant neoplasm of retroperitoneum and peritoneum; G62.81 Critical illness polyneuropathy; Z51.5 Encounter for palliative care; Z66 Do not resuscitate; N18.30 Chronic kidney disease, stage 3 unspecified; D63.0 Anemia in neoplastic disease; F32.A Depression, unspecified; K21.9 Gastro-esophageal reflux disease without esophagitis; R11.2 Nausea with vomiting, unspecified; R19.7 Diarrhea, unspecified; E86.0 Dehydration; D64.81 Anemia due to antineoplastic chemotherapy; I95.9 Hypotension, unspecified; E88.09 Other disorders of plasma-protein metabolism, not elsewhere classified; E87.6 Hypokalemia; F41.9 Anxiety disorder, unspecified; Z79.69 Long term (current) use of other immunomodulators and immunosuppressants; Z87.891 Personal history of nicotine dependence; Z79.82 Long term (current) use of aspirin; Z79.899 Other long term (current) drug therapy